=== PATIENT | female | born 1945 | race Caucasian/White ===

== ENCOUNTER 2020-02-19 11:24 | Inpatient (IN) | payer MEDICARE, OTHER ==
--- NOTE | 2020-02-19 11:33 | ERPHSYRPT ---
- History of Present Illness Time Seen by Provider: 02/19/20 11:33 Historian: patient Exam Limitations: no limitations Physician History: This is a 75-year-old female who is had 2-week history of nausea vomiting diarrhea muscle aches cough symptoms. She has been mildly short of breath as well. Has no known direct exposure to anyone who tested positive for COVID 19. Early on in her symptoms, approximately 2 weeks ago, she noticed decreased sense of taste and smell. Those symptoms are beginning to resolve. Patient arrives to this emergency department with fever of 100.1 F Timing/Duration: week(s) (2) Quality: aching (Generalized) Pain Radiation: no radiation Severity of Pain-Max: mild Severity of Pain-Current: mild Modifying Factors: Improves With: coughing, vomiting Associated Symptoms: diarrhea, loss of appetite, nausea, shortness of breath, vomiting, weakness Allergies/Adverse Reactions: No Known Drug Allergies Allergy (Verified 02/19/20 12:59) Home Medications: Atorvastatin Calcium [Lipitor] 10 mg PO DAILY 02/19/20 [History] Levothyroxine Sodium 100 mcg PO DAILY 02/19/20 [History] Metoprolol Succinate 50 mg [Toprol Xl 50 MG] 50 mg PO DAILY 02/19/20 [ History] Omeprazole 20 mg PO DAILY 02/19/20 [History] Potassium Chloride 8 meq PO BID 02/19/20 [History] Sertraline HCl 100 mg PO BID 02/19/20 [History] Triamterene/Hydrochlorothiazid [Triamterene-Hctz 37.5-25 mg Tb] 1 each PO DAILY 02/19/20 [History] buPROPion HCl [Bupropion HCl Sr] 150 mg PO BID 02/19/20 [History] - Review of Systems Constitutional: Fever, Weakness Eyes: No Symptoms Ears, Nose, & Throat: No Symptoms Respiratory: Cough Cardiac: No Symptoms Abdominal/Gastrointestinal: Nausea, Vomiting, Diarrhea Genitourinary Symptoms: No Symptoms Musculoskeletal: Arthralgias, Myalgias Skin: No Symptoms Neurological: No Symptoms Psychological: No Symptoms Endocrine: No Symptoms Hematologic/Lymphatic: No Symptoms Immunological/Allergic: No Symptoms All Other Systems: Reviewed and Negative - Past Medical History Pertinent Past Medical History: Yes Neurological History: No Pertinent History ENT History: No Pertinent History Cardiac History: Hypertension Respiratory History: No Pertinent History Endocrine Medical History: No Pertinent History Musculoskeletal History: No Pertinent History GI Medical History: No Pertinent History History: No Pertinent History Psycho-Social History: No Pertinent History Female Reproductive Disorders: No Pertinent History - Past Surgical History Neuro Surgical History: No Pertinent History Cardiac: No Pertinent History Respiratory: No Pertinent History Gastrointestinal: No Pertinent History Genitourinary: No Pertinent History Musculoskeletal: No Pertinent History Female Surgical History: No Pertinent History - Social History Smoking Status: Never smoker - Nursing Vital Signs Nursing Vital Signs: Initial Vital Signs Temperature 100.1 F 02/19/20 11:30 Pulse Rate 57 L 02/19/20 11:30 Respiratory Rate 16 02/19/20 11:30 Blood Pressure 82/48 02/19/20 11:30 O2 Sat by Pulse Oximetry 93 L 02/19/20 11:30 Pain Scale Pain Intensity 4 - Physical Exam General Appearance: mild distress, alert Eye Exam: PERRL/EOMI, eyes nml inspection Ears, Nose, Throat Exam: normal ENT inspection, moist mucous membranes Neck Exam: normal inspection, non-tender, supple, full range of motion Respiratory Exam: normal breath sounds, lungs clear, airway intact, No chest tenderness, No respiratory distress Cardiovascular Exam: regular rate/rhythm, normal heart sounds, normal peripheral pulses Gastrointestinal/Abdomen Exam: soft, normal bowel sounds, No tenderness Pelvic Exam: not done Rectal Exam: not done Back Exam: normal inspection, normal range of motion, No CVA tenderness, No vertebral tenderness Extremity Exam: normal inspection, normal range of motion, pelvis stable Neurologic Exam: alert, oriented x 3, cooperative, card room manager II-XII nml as tested Skin Exam: normal color, warm, dry Lymphatic Exam: No adenopathy SpO2 Interpretation: borderline oxygenation O2 Delivery: Room Air - Course Nursing assessment & vital signs reviewed: Yes EKG Interpreted by Me: RATE (57), Sinus Rhythm, NORMAL INTERVALS, 1st degree AV Block, Right Bundle Branch Block, Other (Indeterminate axis. No comparison EKG available) Ordered Tests: Active Orders 24 hr Category Date Time Status IV Insertion STAT Care 02/19/20 11:50 Active Isolation, Initiate & Maintain Q4H Care 02/19/20 12:46 Active CHEST 1 VIEW (PORTABLE) Stat Exams 02/19/20 11:50 Completed AMYLASE Stat Lab 02/19/20 12:00 Completed CBC W DIFF Stat Lab 02/19/20 12:00 Completed CMP Stat Lab 02/19/20 12:00 Completed Ferritin Stat Lab 02/19/20 Ordered LDH-LACTATE DEHYDROGENASE Stat Lab 02/19/20 13:21 Completed LIPASE Stat Lab 02/19/20 12:00 Completed Lactic Acid Stat Lab 02/19/20 11:50 Completed Garvin Screen Stat Lab 02/19/20 12:00 Completed UA W/RFX UR CULTURE Stat Lab 02/19/20 12:46 Completed Transfer Order Routine Transfer 02/19/20 Ordered Medication Summary Generic Name Dose Route Start Last Admin Trade Name Freq PRN Reason Stop Dose Admin Sodium Chloride 1,000 mls @ 100 mls/hr 02/19/20 12:00 02/19/20 12:08 Sodium Chloride 0.9% 1000 Ml IV 03/20/20 11:59 100 mls/hr .Q10H DAVID Administration Discontinued Medications Generic Name Dose Route Start Last Admin Trade Name Freq PRN Reason Stop Dose Admin Ceftriaxone Sodium/Dextrose 1 g in 50 mls @ 100 mls/hr 02/19/20 13:16 Rocephin 1 Gm-D5w 50 Ml Bag IV 02/19/20 13:45 STAT STA Ondansetron HCl 4 mg 02/19/20 11:50 02/19/20 12:08 Zofran 4 Mg/2 Ml Vial IV 02/19/20 11:51 4 mg STAT ONE Administration Ondansetron HCl Confirm 02/19/20 12:05 Zofran 4 Mg/2 Ml Vial Administered 02/19/20 12:06 Dose 4 mg .ROUTE .[facility] ONE Lab/Rad Data: Laboratory Result Diagrams 02/19/20 12:00 02/19/20 12:00 Laboratory Results 02/19/20 02/19/20 02/19/20 Range/Units 13:21 12:46 12:15 WBC (4.0-10.5) K/mm3 RBC (4.1-5.4) M/mm3 Hgb (12.0-16.0) gm/dl Hct (35-47) % MCV (78-100) fl MCH (26-32) pg MCHC (32-36) g/dl RDW (11.5-14.0) % Plt Count (150-450) K/mm3 MPV (7.5-11.0) fl Sodium (137-145) mmol/L Potassium (3.5-5.1) mmol/L Chloride (98-107) mmol/L Carbon Dioxide (22-30) mmol/L Anion Gap (5-15) MEQ/L BUN (7-17) mg/dL Creatinine (0.52-1.04) mg/dL Estimated GFR ML/MIN Glucose (74-106) mg/dL Lactic Acid (0.4-2.0) Calcium (8.4-10.2) mg/dL Total Bilirubin (0.2-1.3) mg/dL AST (14-36) U/L ALT (0-35) U/L Alkaline Phosphatase (38-126) U/L Lactate Dehydrogenase 366 H (120-246) U/L Serum Total Protein (6.3-8.2) g/dL Albumin (3.5-5.0) g/dL Amylase (30-110) U/L Lipase (23-300) U/L Urine Color YELLOW (YELLOW) Urine Appearance SLIGHTLY CLOUDY (CLEAR) Urine pH 7.0 (5-6) Ur Specific [place] 1.017 (1.005-1.025) Urine Protein NEGATIVE (Negative) Urine Ketones TRACE (NEGATIVE) Urine Blood NEGATIVE (0-5) Rizwan/ul Urine Nitrite NEGATIVE (NEGATIVE) Urine Bilirubin NEGATIVE (NEGATIVE) Urine Urobilinogen NEGATIVE (0-1) mg/dL Ur Leukocyte Esterase NEGATIVE (NEGATIVE) Urine WBC (Auto) 0-2 (0-5) /HPF Urine RBC (Auto) 0-2 (0-2) /HPF U Hyaline Cast (Auto) 6-10 (0-2) /LPF U Epithel Cells (Auto) RARE (FEW) /HPF Urine Bacteria (Auto) NONE SEEN (NEGATIVE) /HPF Unidentified Crystals 2-5 (NEGATIVE) /HPF Other Casts (Auto) 2-5 (NEGATIVE) /LPF Urine Mucus (Auto) SLIGHT (NEGATIVE) /HPF Urine Culture Reflexed NO (NO) Urine Glucose NEGATIVE (NEGATIVE) mg/dL Monoscreen (Negative) Influenza Type A Ag NEGATIVE (NEGATIVE) Influenza Type B Ag NEGATIVE (NEGATIVE) RSV (PCR) NEGATIVE (Negative) Group A Strep Antibody NEGATIVE (NEGATIVE) 02/19/20 02/19/20 02/19/20 Range/Units 12:00 12:00 12:00 WBC 4.7 (4.0-10.5) K/mm3 RBC 3.89 L (4.1-5.4) M/mm3 Hgb 13.1 (12.0-16.0) gm/dl Hct 38.0 (35-47) % MCV 97.7 (78-100) fl MCH 33.7 H (26-32) pg MCHC 34.5 (32-36) g/dl RDW 12.6 (11.5-14.0) % Plt Count 194 (150-450) K/mm3 MPV 9.1 (7.5-11.0) fl Sodium 132 L (137-145) mmol/L Potassium 3.1 L (3.5-5.1) mmol/L Chloride 89 L (98-107) mmol/L Carbon Dioxide 30 (22-30) mmol/L Anion Gap 16.2 H (5-15) MEQ/L BUN 24 H (7-17) mg/dL Creatinine 0.83 (0.52-1.04) mg/dL Estimated GFR > 60.0 ML/MIN Glucose 92 (74-106) mg/dL Lactic Acid (0.4-2.0) Calcium 8.4 (8.4-10.2) mg/dL Total Bilirubin 0.70 (0.2-1.3) mg/dL AST 45 H (14-36) U/L ALT 20 (0-35) U/L Alkaline Phosphatase 73 (38-126) U/L Lactate Dehydrogenase (120-246) U/L Serum Total Protein 6.2 L (6.3-8.2) g/dL Albumin 3.6 (3.5-5.0) g/dL Amylase 82 (30-110) U/L Lipase 315 H (23-300) U/L Urine Color (YELLOW) Urine Appearance (CLEAR) Urine pH (5-6) Ur Specific [place] (1.005-1.025) Urine Protein (Negative) Urine Ketones (NEGATIVE) Urine Blood (0-5) Rizwan/ul Urine Nitrite (NEGATIVE) Urine Bilirubin (NEGATIVE) Urine Urobilinogen (0-1) mg/dL Ur Leukocyte Esterase (NEGATIVE) Urine WBC (Auto) (0-5) /HPF Urine RBC (Auto) (0-2) /HPF U Hyaline Cast (Auto) (0-2) /LPF U Epithel Cells (Auto) (FEW) /HPF Urine Bacteria (Auto) (NEGATIVE) /HPF Unidentified Crystals (NEGATIVE) /HPF Other Casts (Auto) (NEGATIVE) /LPF Urine Mucus (Auto) (NEGATIVE) /HPF Urine Culture Reflexed (NO) Urine Glucose (NEGATIVE) mg/dL Monoscreen NEGATIVE (Negative) Influenza Type A Ag (NEGATIVE) Influenza Type B Ag (NEGATIVE) RSV (PCR) (Negative) Group A Strep Antibody (NEGATIVE) 02/19/20 Range/Units 11:50 WBC (4.0-10.5) K/mm3 RBC (4.1-5.4) M/mm3 Hgb (12.0-16.0) gm/dl Hct (35-47) % MCV (78-100) fl MCH (26-32) pg MCHC (32-36) g/dl RDW (11.5-14.0) % Plt Count (150-450) K/mm3 MPV (7.5-11.0) fl Sodium (137-145) mmol/L Potassium (3.5-5.1) mmol/L Chloride (98-107) mmol/L Carbon Dioxide (22-30) mmol/L Anion Gap (5-15) MEQ/L BUN (7-17) mg/dL Creatinine (0.52-1.04) mg/dL Estimated GFR ML/MIN Glucose (74-106) mg/dL Lactic Acid 1.9 (0.4-2.0) Calcium (8.4-10.2) mg/dL Total Bilirubin (0.2-1.3) mg/dL AST (14-36) U/L ALT (0-35) U/L Alkaline Phosphatase (38-126) U/L Lactate Dehydrogenase (120-246) U/L Serum Total Protein (6.3-8.2) g/dL Albumin (3.5-5.0) g/dL Amylase (30-110) U/L Lipase (23-300) U/L Urine Color (YELLOW) Urine Appearance (CLEAR) Urine pH (5-6) Ur Specific [place] (1.005-1.025) Urine Protein (Negative) Urine Ketones (NEGATIVE) Urine Blood (0-5) Rizwan/ul Urine Nitrite (NEGATIVE) Urine Bilirubin (NEGATIVE) Urine Urobilinogen (0-1) mg/dL Ur Leukocyte Esterase (NEGATIVE) Urine WBC (Auto) (0-5) /HPF Urine RBC (Auto) (0-2) /HPF U Hyaline Cast (Auto) (0-2) /LPF U Epithel Cells (Auto) (FEW) /HPF Urine Bacteria (Auto) (NEGATIVE) /HPF Unidentified Crystals (NEGATIVE) /HPF Other Casts (Auto) (NEGATIVE) /LPF Urine Mucus (Auto) (NEGATIVE) /HPF Urine Culture Reflexed (NO) Urine Glucose (NEGATIVE) mg/dL Monoscreen (Negative) Influenza Type A Ag (NEGATIVE) Influenza Type B Ag (NEGATIVE) RSV (PCR) (Negative) Group A Strep Antibody (NEGATIVE) - Progress Progress: improved, re-examined Progress Note: 02/19/20 14:05 Chest x-ray reveals mid to lower lung patchy interstitial alveolar opacities bilaterally 02/19/20 14:[address] Hi Dunaway. I reviewed the patient history and the radiographic and laboratory findings. Patient will be admitted to the COVID unit. Patient replaced on Rocephin and azithromycin intravenously. We will repeat laboratory data in the morning. Patient be placed on oxygen therapy. Counseled pt/family regarding: lab results, diagnosis, need for follow-up, rad results - Departure Departure Disposition: In-patient Admission Clinical Impression: Cough, Fever, Pneumonia, Suspected COVID-19 virus infection Condition: Fair Critical Care Time: No Critical Care Time(excluding separately billable procedures): Critical 30-74 mins Referrals: KECIA KINGSTON DO [Primary Care Provider] -
[2020-02-19] MEDS ORDERED: Zofran 4 MG/2 ML VIAL IV ONE (11:50)
[2020-02-19] MEDS ORDERED: Sodium Chloride 0.9% 1000 ML 1,000 ML IV SCH (12:00)
[2020-02-19] MEDS ORDERED: Zofran 4 MG/2 ML VIAL ONE (12:05)
[2020-02-19] MEDS ORDERED: Sodium Chloride 0.9% 1000 ML 1,000 ML ONE (12:05)
--- NOTE | 2020-02-19 12:27 | XRAY ---
Indication: Suspect Covid 19. Comparison: None Portable chest demonstrates subtle mid to lower lung patchy interstitial alveolar opacities bilaterally. Remaining heart and lungs unremarkable with incidental right lung calcified granuloma. Bony thorax intact with mild degenerative changes.
[2020-02-19 12:57] LABS: Hemoglobin 13.1 gm/dl (12.0-16.0); Mean Cell Volume 97.7 fl (78-100); Mean Corpuscular Hemoglobin 33.7 pg (26-32); Mean Corpuscular Hgb Concent. 34.5 g/dl (32-36); Mean Platelet Volume 9.1 fl (7.5-11.0); Platelet Count 194 K/mm3 (150-450); Red Blood Count 3.89 M/mm3 (4.1-5.4); Red Cell Distribution Width 12.6 % (11.5-14.0); White Blood Count 4.7 K/mm3 (4.0-10.5)
[2020-02-19 13:03] LABS: ALBUMIN 3.6 g/dL (3.5-5.0); ALKALINE PHOSPHATASE 73 U/L (38-126); AMYLASE 82 U/L (30-110); ANION GAP 16.2 MEQ/L (5-15); BLOOD UREA NITROGEN 24 mg/dL (7-17); CHLORIDE 89 mmol/L (98-107); Calcium 8.4 mg/dL (8.4-10.2); Carbon Dioxide 30 mmol/L (22-30); Creatinine 1 0.83 mg/dL (0.52-1.04); Glucose 92 mg/dL (74-106); LIPASE 315 U/L (23-300); SGOT/AST 45 U/L (14-36); SGPT/ALT 20 U/L (0-35); SODIUM 132 mmol/L (137-145); Total Protein 6.2 g/dL (6.3-8.2)
[2020-02-19 13:04] LABS: Potassium 3.1 mmol/L (3.5-5.1)
[2020-02-19] MEDS ORDERED: ROCEPHIN 1 Gm-D5w 50 ml Bag** 1 G/50 ML IVPB IV STA (13:16)
[2020-02-19 13:27] LABS: INFLUENZA A NEGATIVE (NEGATIVE); INFLUENZA B NEGATIVE (NEGATIVE); RESPIRATORY SYNCTIAL VIRUS NEGATIVE (Negative)
[2020-02-19 13:35] LABS: Appearance SLIGHTLY CLOUDY (CLEAR); Bilirubin NEGATIVE (NEGATIVE); Blood NEGATIVE Ery/ul (0-5); Epithelial Cells RARE /HPF (FEW); Glucose NEGATIVE (NEGATIVE); Ketones TRACE (NEGATIVE); Leukocyte Esterase NEGATIVE (NEGATIVE); Mucus SLIGHT /HPF (NEGATIVE); Nitrite NEGATIVE (NEGATIVE); Protein,Urine Dip NEGATIVE (Negative); RBC 0-2 /HPF (0-2); Specific Gravity 1.017 (1.005-1.025); Urobilinogen NEGATIVE mg/dL (0-1); WBC 0-2 /HPF (0-5)
[2020-02-19 13:40] LABS: Bacteria NONE SEEN /HPF (NEGATIVE)
[2020-02-19] MEDS ORDERED: ROCEPHIN 1 Gm-D5w 50 ml Bag** 1 G/50 ML IVPB IV ONE (14:52)
[2020-02-19] MEDS ORDERED: POTASSIUM CHLORIDE 20 mEq IN WATER 100ML 20 MEQ/100 ML BAG IV ONE (15:22)
[2020-02-19 16:20] LABS: BAND 5 % (0.0-2.0); Lymphocytes 6 % (24-44); Monocyte 3 % (0.0-12.0); Neutrophils 86 % (36.0-66.0); Platelet Estimate NORMAL (NORMAL); Total Cells Counted 100
[2020-02-19] MEDS: Sodium Chloride 0.9% 1000 ML 1,000 ML IV SCH (16:22)
[2020-02-19] MEDS ORDERED: ANTIVERT 25 MG PO PRN (18:08)
[2020-02-19] MEDS ORDERED: Ventolin Hfa MDI IH PRN (18:13)
[2020-02-19] MEDS: TYLENOL 325 MG PO PRN (20:11)
[2020-02-19] MEDS: ZOLOFT 50 MG TABLET PO SCH (21:40)
[2020-02-19] MEDS: ENOXAPARIN SODIUM SQ SCH (21:40)
[2020-02-19] MEDS: Wellbutrin SR 150 MG PO SCH (21:40)
[2020-02-19] MEDS: Klor Con 10 MEQ PO SCH (21:41)
[2020-02-19] MEDS: ECOTRIN 81 MG PO SCH (21:41)
[2020-02-19] MEDS ORDERED: Zithromax 500 MG/ 250 ML NaCl Premix 500 MG/250 ML IVPB IV SCH (22:00)
[2020-02-19] MEDS: POTASSIUM CHLORIDE 20 mEq IN WATER 100ML 20 MEQ/100 ML BAG IV ONE (22:00)
[2020-02-20] MEDS: TYLENOL 325 MG PO PRN ×2 (01:43→15:53)
[2020-02-20 05:29] LABS: Mean Cell Volume 99.4 fl (78-100); Mean Corpuscular Hemoglobin 33.1 pg (26-32); Mean Corpuscular Hgb Concent. 33.3 g/dl (32-36); Mean Platelet Volume 8.2 fl (7.5-11.0); Platelet Count 176 K/mm3 (150-450); Red Blood Count 3.32 M/mm3 (4.1-5.4); Red Cell Distribution Width 12.7 % (11.5-14.0); White Blood Count 4.8 K/mm3 (4.0-10.5)
[2020-02-20 05:52] LABS: ALKALINE PHOSPHATASE 64 U/L (38-126); ANION GAP 16.4 MEQ/L (5-15); BLOOD UREA NITROGEN 16 mg/dL (7-17); CHLORIDE 95 mmol/L (98-107); Calcium 7.5 mg/dL (8.4-10.2); Carbon Dioxide 28 mmol/L (22-30); Creatinine 1 0.81 mg/dL (0.52-1.04); Glucose 91 mg/dL (74-106); SGOT/AST 38 U/L (14-36); SGPT/ALT 16 U/L (0-35); SODIUM 136 mmol/L (137-145); Total Protein 5.5 g/dL (6.3-8.2)
[2020-02-20 05:54] LABS: Potassium 2.9 mmol/L (3.5-5.1)
[2020-02-20] MEDS ORDERED: POTASSIUM CHLORIDE 20 mEq IN WATER 100ML 20 MEQ/100 ML BAG IV ONE (05:57)
[2020-02-20] MEDS: POTASSIUM CHLORIDE 20 mEq IN WATER 100ML 20 MEQ/100 ML BAG IV ONE (06:02)
[2020-02-20 06:32] LABS: BAND 4 % (0.0-2.0); Lymphocytes 3 % (24-44); Neutrophils 93 % (36.0-66.0); Platelet Estimate NORMAL (NORMAL); Total Cells Counted 100
[2020-02-20] MEDS ORDERED: VENTOLIN COMMON CANISTER IH PRN (06:59)
[2020-02-20] MEDS: Zofran 4 MG/2 ML VIAL IV PRN (07:05)
[2020-02-20] MEDS ORDERED: PHARMACY DOSING REQUEST MC ONE ×2 (07:45→11:52)
[2020-02-20] MEDS ORDERED: NON-FORMULARY ITEM (Fluticasone Propionate [Flonase Allergy Relief] 1 SPRAY) NS SCH (10:00)
[2020-02-20] MEDS ORDERED: ROCEPHIN 1 Gm-D5w 50 ml Bag** 1 G/50 ML IVPB IV SCH (10:00)
[2020-02-20] MEDS ORDERED: NON-FORMULARY ITEM (Atorvastatin Calcium [Lipitor] 10 MG) PO SCH (10:00)
[2020-02-20] MEDS ORDERED: NON-FORMULARY ITEM (Cyanocobalamin (Vitamin B-12) [Vitamin B-12] 1,000 MCG) SL SCH (10:00)
[2020-02-20] MEDS ORDERED: NON-FORMULARY ITEM (Multivitamin [Multivitamins] 1 EACH) PO SCH (10:00)
[2020-02-20] MEDS: Flonase NASAL NS SCH (10:41)
[2020-02-20] MEDS: ENOXAPARIN SODIUM SQ SCH (10:42)
[2020-02-20] MEDS: Zocor 10MG PO SCH (10:44)
[2020-02-20] MEDS: Klor Con 10 MEQ PO SCH ×2 (10:44→22:38)
[2020-02-20] MEDS: Protonix 40MG Tablet PO SCH (10:44)
[2020-02-20] MEDS: THERAGRAN MULTIVITAMIN PO SCH (10:45)
[2020-02-20] MEDS: Wellbutrin SR 150 MG PO SCH ×2 (10:45→22:38)
[2020-02-20] MEDS: ZOLOFT 50 MG TABLET PO SCH ×2 (10:45→22:38)
[2020-02-20] MEDS: Vitamin B-12 500 MCG PO SCH (10:45)
[2020-02-20] MEDS: SYNTHROID 100 MCG PO SCH (10:50)
[2020-02-20] MEDS: DELTASONE 20 MG PO SCH (10:53)
--- NOTE | 2020-02-20 11:09 | HP ---
CHIEF COMPLAINT: Fatigue, temperature, cough. HISTORY OF PRESENT ILLNESS: The patient is a 75 year-old white female who comes in after coughing, running a low grade temperature. She had some recent nausea, vomiting, diarrhea, muscle aching. No exposure to COVID that she knows. She has been living at her daughters who is a nurse. She had lived in [place]. I believe she now lives in [place] and has been living towards [place] recently and came back here. In the emergency room she had a temperature 100.1F. MEDICATIONS: Atorvastatin 10 q.d., Synthroid 100 q.d., metoprolol 50 q.d., Prilosec 20 q.d., Zoloft 100 b.i.d., Maxzide 37/25 q.d., Wellbutrin 150 b.i.d. PAST MEDICAL HISTORY: Hypertension. Hypothyroidism. Gastroesophageal reflux disease. REVIEW OF SYSTEMS: HEENT: Hears and sees okay. Just tired, listless. RESPIRATORY: Frequent cough for two weeks. Nonsmoker. No history of pneumonia. She has had influenza vaccine. CVS: Denies heart problems, heart attacks, heart failure or arrhythmia. ABDOMEN: Some nausea and vomiting. She lost her sense of taste which is coming back. Diarrhea. MUSCULOSKELETAL: Achy, weak, ambulates by herself to the bathroom. NEUROLOGIC: No symptoms. ENDOCRINE: Fatigue. PSYCHIATRIC: The patient lost her this spring after complications with his dementia. I believe she also lost maybe [id number] from dementia this spring also. It has been a very depressing time for her. PHYSICAL EXAMINATION: The patient is appropriately aged, well dressed, very pleasant 75 year-old white female who looks chronically ill. VITAL SIGNS: Temperature 100F, pulse 57, respirations 16, blood pressure 82/48. O2 saturation 93% on room air. HEENT: Pupils equal and reactive to light. Hearing and seeing is okay. NECK: Supple without adenopathy. CHEST: Clear. CVS: Bradycardia. No murmurs or gallops. ABDOMEN: No masses or organomegaly. EXTREMITIES: No edema. Patient moves all. No fractures. IMPRESSION: Cough, nausea, fatigue, bradycardia for three weeks. Viral upper respiratory tract infection possible COVID as well as the hypokalemia. Low calcium secondary to low protein. PLAN: Discontinue the Toprol secondary to bradycardia and hypotension. Get COVID virus test due to all of the symptoms including temperature. Stop her Dyazide due to hypokalemia. Consider maybe backing off the Zoloft since she is nauseated all the time. Started some antibiotics for continued fever, some IV potassium as potassium is 2.9. Her creatinine is normal at 0.831. Calcium is slightly low at 7.4. Total protein is low at 5.5 explaining the calcium. Albumin is low at 3.0. Differential she had 4 bands, 93 neutrophils, hemoglobin 11, white count was only 4.9. IV fluids, discontinue the above medications. PROGNOSIS: Good.
[2020-02-20] MEDS ORDERED: Potassium Chloride 40 MEQ/20 ML VIAL 40 MEQ, XYLOCAINE 1% HCL 20 ML MDV*** 4 ML in Sodi... IV ONE (12:00)
[2020-02-20] MEDS: MAG-OX 400 PO SCH (12:58)
[2020-02-20] MEDS: ECOTRIN 81 MG PO SCH (22:37)
[2020-02-20 23:26] LABS: Adenovirus F 40/41 NEGATIVE (NEGATIVE); Astrovirus NEGATIVE (NEGATIVE); C. Difficile Organism NEGATIVE (NEGATIVE); Campylobacter NEGATIVE (NEGATIVE); Cryptosporidium NEGATIVE (NEGATIVE); Cyclospora cayentanensis NEGATIVE (NEGATIVE); Entamoeaba histolytica NEGATIVE (NEGATIVE); Enteroaggregative E.coli NEGATIVE (NEGATIVE); Enteropathogenic E.coli NEGATIVE (NEGATIVE); Enterotoxigenic E.coli NEGATIVE (NEGATIVE); Giardia lamblia NEGATIVE (NEGATIVE); Norovirus GI/GII NEGATIVE (NEGATIVE); Plesiomonas shigelloides NEGATIVE (NEGATIVE); Rotavirus A NEGATIVE (NEGATIVE); Salmonella NEGATIVE (NEGATIVE); Shiga-like toxin prod.E.coli NEGATIVE (NEGATIVE); Vibrio NEGATIVE (NEGATIVE); Vibrio cholerae NEGATIVE (NEGATIVE); Yersinia enterocolitica NEGATIVE (NEGATIVE)
[2020-02-20 23:27] LABS: Sapovirus NEGATIVE (NEGATIVE)
[2020-02-21] MEDS: TYLENOL 325 MG PO PRN ×3 (04:02→20:14)
[2020-02-21] MEDS: Sodium Chloride 0.9% 1000 ML 1,000 ML IV SCH (04:02)
[2020-02-21] MEDS: IMODIUM 2 MG PO PRN ×2 (05:46→09:06)
[2020-02-21] MEDS: Zofran 4 MG/2 ML VIAL IV PRN (05:46)
[2020-02-21] MEDS: SYNTHROID 100 MCG PO SCH (05:46)
[2020-02-21] MEDS ORDERED: Zofran 4 MG/2 ML VIAL IV PRN (09:01)
[2020-02-21] MEDS: ZOLOFT 50 MG TABLET PO SCH ×3 (09:07→22:48)
[2020-02-21] MEDS: Klor Con 10 MEQ PO SCH ×3 (09:07→22:48)
[2020-02-21] MEDS: Vitamin B-12 500 MCG PO SCH (09:07)
[2020-02-21] MEDS: MAG-OX 400 PO SCH (09:07)
[2020-02-21] MEDS: Protonix 40MG Tablet PO SCH (09:07)
[2020-02-21] MEDS: DELTASONE 20 MG PO SCH (09:07)
[2020-02-21] MEDS: THERAGRAN MULTIVITAMIN PO SCH (09:07)
[2020-02-21] MEDS: Zocor 10MG PO SCH (09:07)
[2020-02-21] MEDS: Wellbutrin SR 150 MG PO SCH ×3 (09:07→22:48)
[2020-02-21] MEDS: ENOXAPARIN SODIUM SQ SCH (09:08)
[2020-02-21] MEDS: Flonase NASAL NS SCH (09:08)
[2020-02-21] MEDS: Flagyl 500 MG PO SCH ×2 (09:55→14:53)
[2020-02-21 10:18] LABS: Hematocrit 31.6 % (35-47); Hemoglobin 10.5 gm/dl (12.0-16.0); Mean Cell Volume 100.6 fl (78-100); Mean Corpuscular Hemoglobin 33.4 pg (26-32); Mean Corpuscular Hgb Concent. 33.2 g/dl (32-36); Mean Platelet Volume 8.2 fl (7.5-11.0); Platelet Count 181 K/mm3 (150-450); Red Blood Count 3.14 M/mm3 (4.1-5.4); Red Cell Distribution Width 12.6 % (11.5-14.0); White Blood Count 5.1 K/mm3 (4.0-10.5)
[2020-02-21] MEDS: Lomotil PO PRN (12:01)
[2020-02-21] MEDS: ECOTRIN 81 MG PO SCH ×2 (22:02→22:48)
[2020-02-21] MEDS: ANTIVERT 25 MG PO PRN ×2 (22:03→22:49)
[2020-02-22] MEDS: Sodium Chloride 0.9% 1000 ML 1,000 ML IV SCH ×3 (00:17→20:30)
[2020-02-22] MEDS: TYLENOL 325 MG PO PRN ×3 (00:18→15:03)
[2020-02-22 05:19] LABS: Hematocrit 30.6 % (35-47); Hemoglobin 10.2 gm/dl (12.0-16.0); Mean Cell Volume 100.3 fl (78-100); Mean Corpuscular Hemoglobin 33.4 pg (26-32); Mean Corpuscular Hgb Concent. 33.3 g/dl (32-36); Mean Platelet Volume 8.3 fl (7.5-11.0); Platelet Count 203 K/mm3 (150-450); Red Blood Count 3.05 M/mm3 (4.1-5.4); Red Cell Distribution Width 12.6 % (11.5-14.0); White Blood Count 5.8 K/mm3 (4.0-10.5)
[2020-02-22 05:24] LABS: ALBUMIN 2.8 g/dL (3.5-5.0); ALKALINE PHOSPHATASE 56 U/L (38-126); ANION GAP 11.2 MEQ/L (5-15); BLOOD UREA NITROGEN 7 mg/dL (7-17); CHLORIDE 100 mmol/L (98-107); Calcium 7.7 mg/dL (8.4-10.2); Carbon Dioxide 27 mmol/L (22-30); Creatinine 1 0.66 mg/dL (0.52-1.04); Glucose 92 mg/dL (74-106); Potassium 3.3 mmol/L (3.5-5.1); SGOT/AST 31 U/L (14-36); SGPT/ALT 17 U/L (0-35); SODIUM 134 mmol/L (137-145); Total Protein 5.5 g/dL (6.3-8.2)
[2020-02-22] MEDS: SYNTHROID 100 MCG PO SCH (06:03)
[2020-02-22] MEDS ORDERED: Klor Con 10 MEQ PO ONE (10:00)
[2020-02-22] MEDS: ZOLOFT 50 MG TABLET PO SCH ×2 (10:27→21:51)
[2020-02-22] MEDS: Klor Con 10 MEQ PO SCH ×2 (10:27→21:51)
[2020-02-22] MEDS: Zocor 10MG PO SCH (10:27)
[2020-02-22] MEDS: Wellbutrin SR 150 MG PO SCH ×2 (10:27→21:52)
[2020-02-22] MEDS: Protonix 40MG Tablet PO SCH (10:28)
[2020-02-22] MEDS: THERAGRAN MULTIVITAMIN PO SCH (10:28)
[2020-02-22] MEDS: Vitamin B-12 500 MCG PO SCH (10:28)
[2020-02-22] MEDS: MAG-OX 400 PO SCH (10:29)
[2020-02-22] MEDS: ENOXAPARIN SODIUM SQ SCH (10:29)
[2020-02-22] MEDS: Flonase NASAL NS SCH (10:29)
[2020-02-22] MEDS ORDERED: REMDESIVIR 200 MG in Sodium Chloride 0.9% 250 ML 250 ML IV ONE (10:30)
[2020-02-22] MEDS: Lomotil PO PRN ×2 (11:01→15:03)
[2020-02-22] MEDS: Ativan 1 MG PO PRN (11:01)
[2020-02-22] MEDS: ECOTRIN 81 MG PO SCH (21:52)
[2020-02-23] MEDS: SYNTHROID 100 MCG PO SCH (05:30)
[2020-02-23 06:31] LABS: Hematocrit 30.6 % (35-47); Hemoglobin 10.3 gm/dl (12.0-16.0); Mean Cell Volume 99.4 fl (78-100); Mean Corpuscular Hemoglobin 33.4 pg (26-32); Mean Corpuscular Hgb Concent. 33.7 g/dl (32-36); Mean Platelet Volume 8.2 fl (7.5-11.0); Platelet Count 216 K/mm3 (150-450); Red Blood Count 3.08 M/mm3 (4.1-5.4); Red Cell Distribution Width 12.9 % (11.5-14.0)
[2020-02-23 06:39] LABS: ALBUMIN 2.9 g/dL (3.5-5.0); ALKALINE PHOSPHATASE 51 U/L (38-126); ANION GAP 11.8 MEQ/L (5-15); BLOOD UREA NITROGEN 9 mg/dL (7-17); CHLORIDE 99 mmol/L (98-107); Calcium 7.5 mg/dL (8.4-10.2); Carbon Dioxide 25 mmol/L (22-30); Creatinine 1 0.62 mg/dL (0.52-1.04); Glucose 86 mg/dL (74-106); Potassium 3.5 mmol/L (3.5-5.1); SGOT/AST 35 U/L (14-36); SGPT/ALT 16 U/L (0-35); SODIUM 133 mmol/L (137-145); Total Protein 5.4 g/dL (6.3-8.2)
[2020-02-23] MEDS: Lomotil PO PRN ×2 (09:49→14:08)
[2020-02-23] MEDS: Protonix 40MG Tablet PO SCH (09:49)
[2020-02-23] MEDS: THERAGRAN MULTIVITAMIN PO SCH (09:49)
[2020-02-23] MEDS: Klor Con 10 MEQ PO SCH ×2 (09:49→21:37)
[2020-02-23] MEDS: ENOXAPARIN SODIUM SQ SCH (09:49)
[2020-02-23] MEDS: Vitamin B-12 500 MCG PO SCH (09:49)
[2020-02-23] MEDS: Zocor 10MG PO SCH (09:50)
[2020-02-23] MEDS: ZOLOFT 50 MG TABLET PO SCH ×2 (09:50→21:37)
[2020-02-23] MEDS: Wellbutrin SR 150 MG PO SCH ×2 (09:50→21:37)
[2020-02-23] MEDS: Flonase NASAL NS SCH (09:50)
[2020-02-23] MEDS: REMDESIVIR 100 MG in Sodium Chloride 0.9% 100 ML IVPB 100 ML IV SCH (09:50)
[2020-02-23] MEDS: MAG-OX 400 PO SCH (09:50)
[2020-02-23] MEDS: IMODIUM 2 MG PO PRN ×2 (14:08→20:54)
[2020-02-23] MEDS: Ativan 1 MG PO PRN (14:08)
[2020-02-23] MEDS: TYLENOL 325 MG PO PRN (14:08)
[2020-02-23] MEDS: ECOTRIN 81 MG PO SCH (21:37)
[2020-02-23] MEDS: Sodium Chloride 0.9% 1000 ML 1,000 ML IV SCH (21:40)
[2020-02-24] MEDS: SYNTHROID 100 MCG PO SCH (06:05)
[2020-02-24 06:55] LABS: Hematocrit 30.4 % (35-47); Hemoglobin 10.1 gm/dl (12.0-16.0); Mean Cell Volume 99.3 fl (78-100); Mean Corpuscular Hgb Concent. 33.2 g/dl (32-36); Mean Platelet Volume 8.3 fl (7.5-11.0); Platelet Count 222 K/mm3 (150-450); Red Blood Count 3.06 M/mm3 (4.1-5.4); Red Cell Distribution Width 12.8 % (11.5-14.0); White Blood Count 4.8 K/mm3 (4.0-10.5)
[2020-02-24 07:00] LABS: ALBUMIN 2.7 g/dL (3.5-5.0); ALKALINE PHOSPHATASE 51 U/L (38-126); ANION GAP 12.9 MEQ/L (5-15); BLOOD UREA NITROGEN 9 mg/dL (7-17); CHLORIDE 100 mmol/L (98-107); Calcium 7.5 mg/dL (8.4-10.2); Carbon Dioxide 25 mmol/L (22-30); Glucose 87 mg/dL (74-106); SGOT/AST 37 U/L (14-36); SGPT/ALT 17 U/L (0-35); SODIUM 135 mmol/L (137-145); Total Protein 5.3 g/dL (6.3-8.2)
[2020-02-24 07:07] LABS: Potassium 2.9 mmol/L (3.5-5.1)
[2020-02-24] MEDS: POTASSIUM CHLORIDE 20 mEq IN WATER 100ML 20 MEQ/100 ML BAG IV SCH ×4 (07:31→17:11)
[2020-02-24 07:52] LABS: Appearance CLEAR (CLEAR); Bilirubin NEGATIVE (NEGATIVE); Blood NEGATIVE Ery/ul (0-5); Glucose NEGATIVE (NEGATIVE); Ketones TRACE (NEGATIVE); Leukocyte Esterase NEGATIVE (NEGATIVE); Mucus SLIGHT /HPF (NEGATIVE); Nitrite NEGATIVE (NEGATIVE); Protein,Urine Dip NEGATIVE (Negative); Specific Gravity 1.006 (1.005-1.025); Urobilinogen NEGATIVE mg/dL (0-1)
[2020-02-24] MEDS: ENOXAPARIN SODIUM SQ SCH (09:19)
[2020-02-24] MEDS: ZOLOFT 50 MG TABLET PO SCH ×2 (09:19→21:44)
[2020-02-24] MEDS: Klor Con 10 MEQ PO SCH ×3 (09:20→23:22)
[2020-02-24] MEDS: Flonase NASAL NS SCH (09:20)
[2020-02-24] MEDS: Vitamin B-12 500 MCG PO SCH (09:20)
[2020-02-24] MEDS: MAG-OX 400 PO SCH ×2 (09:20→23:22)
[2020-02-24] MEDS: THERAGRAN MULTIVITAMIN PO SCH ×2 (09:20→10:01)
[2020-02-24] MEDS: Wellbutrin SR 150 MG PO SCH ×2 (09:20→21:44)
[2020-02-24] MEDS: Zocor 10MG PO SCH (09:20)
[2020-02-24] MEDS: Protonix 40MG Tablet PO SCH (09:20)
[2020-02-24] MEDS: REMDESIVIR 100 MG in Sodium Chloride 0.9% 100 ML IVPB 100 ML IV SCH (09:50)
[2020-02-24] MEDS ORDERED: POTASSIUM CHLORIDE 20 mEq IN WATER 100ML 100 ML IV ONE (14:52)
[2020-02-24] MEDS ORDERED: Sodium Chloride 0.9% 500 ML 500 ML IV SCH (15:00)
[2020-02-24] MEDS: ECOTRIN 81 MG PO SCH (21:44)
[2020-02-24 22:57] LABS: MAGNESIUM 1.3 mg/dL (1.6-2.3)
[2020-02-25] MEDS: SYNTHROID 100 MCG PO SCH (05:03)
[2020-02-25 05:16] LABS: Hematocrit 31.4 % (35-47); Hemoglobin 10.4 gm/dl (12.0-16.0); Mean Cell Volume 98.7 fl (78-100); Mean Corpuscular Hemoglobin 32.7 pg (26-32); Mean Corpuscular Hgb Concent. 33.1 g/dl (32-36); Platelet Count 244 K/mm3 (150-450); Red Blood Count 3.18 M/mm3 (4.1-5.4); Red Cell Distribution Width 12.8 % (11.5-14.0); White Blood Count 5.3 K/mm3 (4.0-10.5)
[2020-02-25 05:46] LABS: ALBUMIN 2.7 g/dL (3.5-5.0); ALKALINE PHOSPHATASE 57 U/L (38-126); ANION GAP 10.2 MEQ/L (5-15); BLOOD UREA NITROGEN 8 mg/dL (7-17); CHLORIDE 102 mmol/L (98-107); Calcium 7.8 mg/dL (8.4-10.2); Carbon Dioxide 27 mmol/L (22-30); Creatinine 1 0.52 mg/dL (0.52-1.04); Glucose 97 mg/dL (74-106); Potassium 3.2 mmol/L (3.5-5.1); SGOT/AST 39 U/L (14-36); SGPT/ALT 19 U/L (0-35); SODIUM 136 mmol/L (137-145); Total Protein 5.4 g/dL (6.3-8.2)
[2020-02-25] MEDS: REMDESIVIR 100 MG in Sodium Chloride 0.9% 100 ML IVPB 100 ML IV SCH (10:00)
[2020-02-25] MEDS: ENOXAPARIN SODIUM SQ SCH (10:01)
[2020-02-25] MEDS: Wellbutrin SR 150 MG PO SCH ×2 (10:01→21:45)
[2020-02-25] MEDS: ZOLOFT 50 MG TABLET PO SCH ×2 (10:02→21:45)
[2020-02-25] MEDS: Zocor 10MG PO SCH (10:02)
[2020-02-25] MEDS: THERAGRAN MULTIVITAMIN PO SCH (10:02)
[2020-02-25] MEDS: Vitamin B-12 500 MCG PO SCH (10:02)
[2020-02-25] MEDS: MAG-OX 400 PO SCH ×2 (10:02→21:44)
[2020-02-25] MEDS: Klor Con 10 MEQ PO SCH ×3 (10:03→21:45)
[2020-02-25] MEDS: Protonix 40MG Tablet PO SCH (10:03)
[2020-02-25] MEDS: Flonase NASAL NS SCH (10:39)
--- NOTE | 2020-02-25 12:52 | PCM.NOTE ---
Date and Time: 02/25/20 1248 Subjective Assessment: doing ok, still short of breath - Review of Systems Constitutional: No Fever, No Chills Eyes: No Symptoms Ears, Nose, & Throat: No Symptoms Respiratory: Orthopnea, Short Of Breath, No Cough Cardiac: No Chest Pain, No Edema, No Syncope Abdominal/Gastrointestinal: No Abdominal Pain, No Nausea, No Vomiting, No Diarrhea Genitourinary Symptoms: No Dysuria Musculoskeletal: No Back Pain, No Neck Pain Skin: No Rash Neurological: No Dizziness, No Focal Weakness, No Sensory Changes Psychological: No Symptoms Endocrine: No Symptoms Hematologic/Lymphatic: No Symptoms Immunological/Allergic: No Symptoms Objective Exam General Appearance: no apparent distress, alert Neurologic Exam: alert, oriented x 3, cooperative, normal mood/affect, nml cerebellar function, sensation nml, No motor deficits Skin Exam: normal color, warm, dry Eye Exam: PERRL, EOMI, eyes nml inspection Ears, Nose, Throat Exam: normal ENT inspection, pharynx normal, moist mucous membranes Neck Exam: normal inspection, non-tender, supple, full range of motion Respiratory Exam: normal breath sounds, diminished breath sounds, crackles/rales , rhonchi, wheezing, No respiratory distress Cardiovascular Exam: regular rate/rhythm, normal heart sounds Gastrointestinal/Abdomen Exam: soft, No tenderness, No mass Extremity Exam: normal inspection, normal range of motion Back Exam: normal inspection, normal range of motion, No CVA tenderness, No vertebral tenderness Pelvic Exam: deferred Rectal Exam: deferred OBJECTIVE DATA Vital Signs: Vital Signs - 24 hr Temp Pulse Resp BP Pulse Ox 02/25/20 12:28 98.1 F 59 L 18 120/59 94 L 02/25/20 12:00 98.1 F 62 27 H 131/74 94 L 02/25/20 11:00 16 02/25/20 10:00 16 02/25/20 09:53 99.0 F 50 L 14 155/60 94 L 02/25/20 09:00 26 H 02/25/20 08:00 16 02/25/20 07:40 60 18 94 L 02/25/20 07:23 98.1 F 68 16 114/55 95 02/25/20 07:00 27 H 02/25/20 06:00 27 H 02/25/20 05:35 60 27 H 95 02/25/20 05:00 20 06/01/20 04:00 98.1 F 68 20 138/71 93 L 02/25/20 03:00 20 02/25/20 02:00 65 20 92 L 02/25/20 00:59 25 H 02/25/20 00:00 30 H 02/24/20 23:51 98.4 F 67 18 138/71 91 L 02/24/20 23:00 23 02/24/20 21:47 67 18 94 L 02/24/20 21:00 23 02/24/20 20:30 64 16 93 L 02/24/20 20:00 98.5 F 72 18 126/64 94 L 02/24/20 18:40 21 02/24/20 17:53 61 18 92 L 02/24/20 17:00 22 02/24/20 16:00 98.8 F 62 18 108/62 94 L 02/24/20 15:00 18 02/24/20 14:00 60 18 92 L 02/24/20 12:49 17 Oxygen-Last 24 hours Oxygen Flowrate (L/min)-RT 2 Oxygen Flowrate (L/min)-RT 2 Oxygen Flowrate (L/min)-RT 2 Oxygen Flowrate (L/min)-RT 2 Oxygen Flowrate (L/min)-RT 2 Oxygen Flowrate (L/min)-RT 2 Oxygen Flowrate (L/min)-RT 2 Pain Assessment - Last Documented Pain Intensity 0 Pain Scale Used FLACC Intake and Output: Intake & Output 02/23/20 02/24/20 02/25/20 02/26/20 11:59 11:59 11:59 11:59 Intake Total 2640 2914 1840 Output Total 1650 2325 1350 Balance 990 589 490 Weight 90 kg 91.2 kg 90.5 kg Lab Results: Lab Results-Last 24 Hours 02/24/20 02/24/20 02/25/20 Range/Units 14:05 22:44 05:00 WBC 5.3 (4.0-10.5) K/mm3 RBC 3.18 L (4.1-5.4) M/mm3 Hgb 10.4 L (12.0-16.0) gm/dl Hct 31.4 L (35-47) % MCV 98.7 (78-100) fl MCH 32.7 H (26-32) pg MCHC 33.1 (32-36) g/dl RDW 12.8 (11.5-14.0) % Plt Count 244 (150-450) K/mm3 MPV 8.0 (7.5-11.0) fl D-Dimer (215-500) ng/mL Sodium (137-145) mmol/L Potassium 2.9 L* 3.0 L (3.5-5.1) mmol/L Chloride (98-107) mmol/L Carbon Dioxide (22-30) mmol/L Anion Gap (5-15) MEQ/L BUN (7-17) mg/dL Creatinine (0.52-1.04) mg/dL Estimated GFR ML/MIN Glucose (74-106) mg/dL Calcium (8.4-10.2) mg/dL Magnesium 1.3 L (1.6-2.3) mg/dL Total Bilirubin (0.2-1.3) mg/dL AST (14-36) U/L ALT (0-35) U/L Alkaline Phosphatase (38-126) U/L Serum Total Protein (6.3-8.2) g/dL Albumin (3.5-5.0) g/dL 02/25/20 02/25/20 02/25/20 Range/Units 05:00 05:00 05:00 WBC (4.0-10.5) K/mm3 RBC (4.1-5.4) M/mm3 Hgb (12.0-16.0) gm/dl Hct (35-47) % MCV (78-100) fl MCH (26-32) pg MCHC (32-36) g/dl RDW (11.5-14.0) % Plt Count (150-450) K/mm3 MPV (7.5-11.0) fl D-Dimer 769 H* (215-500) ng/mL Sodium 136 L (137-145) mmol/L Potassium 3.2 L (3.5-5.1) mmol/L Chloride 102 (98-107) mmol/L Carbon Dioxide 27 (22-30) mmol/L Anion Gap 10.2 (5-15) MEQ/L BUN 8 (7-17) mg/dL Creatinine 0.52 (0.52-1.04) mg/dL Estimated GFR > 60.0 ML/MIN Glucose 97 (74-106) mg/dL Calcium 7.8 L (8.4-10.2) mg/dL Magnesium 1.3 L (1.6-2.3) mg/dL Total Bilirubin 0.50 (0.2-1.3) mg/dL AST 39 H (14-36) U/L ALT 19 (0-35) U/L Alkaline Phosphatase 57 (38-126) U/L Serum Total Protein 5.4 L (6.3-8.2) g/dL Albumin 2.7 L (3.5-5.0) g/dL Multi-Disciplinary Progress Notes: Multi-Disciplinary Progress Notes 02/25/20 11:35 Nutrition Note by Trisha Booth F/u Note: House Regular diet con't with 25-50% po intake. admission weight 85.6 kg/ current weight 90.5 kg. Labs 02/24= Na 136, K+ 3.2, alb 2.7, Mg 1.3, hgb 10.4, hct 31.4. + fluid balance. goal of consuming >=50% of meals not met 100% and ongoing. Recommend to con't with regular diet and goals. Will monitor and f/u prn. TREFUGIO Alegria Initialized on 02/25/20 11:35 - END OF NOTE 02/25/20 07:45 (created 02/25/20 08:03) Respiratory Note by Josselyn Moses PT GOT UP TO THE BATHROOM ON ROOM AIR. PT'S O2 SAT ON ROOM AIR WHILE WALKING WAS 84%. PT WAS PLACED BACK ON 2LPM NASAL CANNULA. O2 SAT INCREASED TO 94%. NURSE NOTIFIED. Initialized on 02/25/20 08:03 - END OF NOTE Assessment/Plan (1) Pneumonia Current Visit: Yes Status: Acute Qualifiers: Laterality: unspecified laterality Lung location: unspecified part of lung Assessment & Plan: Chief Complaint Diagnosis Pneumonia Allergies Allergy/AdvReac Type Severity Reaction Status Date / Time meperidine [From Demerol] AdvReac Intermediate Verified 02/19/20 17:16 Vital Signs (Last 24 hours) Temp Pulse Resp BP Pulse Ox 02/25/20 12:28 98.1 F 59 L 18 120/59 94 L 02/25/20 12:00 98.1 F 62 27 H 131/74 94 L 02/25/20 11:00 16 02/25/20 10:00 16 02/25/20 09:53 99.0 F 50 L 14 155/60 94 L 02/25/20 09:00 26 H 02/25/20 08:00 16 02/25/20 07:40 60 18 94 L 02/25/20 07:23 98.1 F 68 16 114/55 95 02/25/20 07:00 27 H 02/25/20 06:00 27 H 02/25/20 05:35 60 27 H 95 02/25/20 05:00 20 02/25/20 04:00 98.1 F 68 20 138/71 93 L 02/25/20 03:00 20 02/25/20 02:00 65 20 92 L 02/25/20 00:59 25 H 02/25/20 00:00 30 H 02/24/20 23:51 98.4 F 67 18 138/71 91 L 02/24/20 23:00 23 02/24/20 21:47 67 18 94 L 02/24/20 21:00 23 02/24/20 20:30 64 16 93 L 02/24/20 20:00 98.5 F 72 18 126/64 94 L 02/24/20 18:40 21 02/24/20 17:53 61 18 92 L 02/24/20 17:00 22 02/24/20 16:00 98.8 F 62 18 108/62 94 L 02/24/20 15:00 18 02/24/20 14:00 60 18 92 L Home Medications Medication Instructions Recorded Confirmed Last Taken Type Albuterol Sulfate [Albuterol 2 puff IH Q6HPRN PRN 02/19/20 02/19/20 Unknown History Sulfate Hfa] Aspirin EC 81 mg [Ecotrin 81 81 mg PO QHS 02/19/20 02/19/20 Unknown History mg] Atorvastatin Calcium [Lipitor] 10 mg PO DAILY 02/19/20 02/19/20 Unknown History Cyanocobalamin (Vitamin B-12) 1,000 mcg SL DAILY 02/19/20 02/19/20 Unknown History [Vitamin B-12] Fluticasone Propionate [Flonase 1 spray NS DAILY 02/19/20 02/19/20 Unknown History Allergy Relief] Levothyroxine Sodium 100 mcg PO DAILY 02/19/20 02/19/20 Unknown History Meclizine HCl 12.5 mg PO TIDPRN 02/19/20 02/19/20 Unknown History Multivitamin [Multivitamins] 1 each PO DAILY 02/19/20 02/19/20 Unknown History Omeprazole 20 mg PO DAILY 02/19/20 02/19/20 Unknown History Potassium Chloride 8 meq PO BID 02/19/20 02/19/20 Unknown History Sertraline HCl 100 mg PO BID 02/19/20 02/19/20 Unknown History buPROPion HCl [Bupropion HCl Sr] 150 mg PO BID 02/19/20 02/19/20 Unknown History Current Medications Generic Name Dose Route Start Last Admin Trade Name Freq PRN Reason Stop Dose Admin Acetaminophen 650 mg 02/19/20 15:22 02/23/20 14:08 Tylenol 325 Mg PO 03/20/20 15:21 650 mg Q4H PRN PRN Administration PAIN, FEVER, HEADACHE Albuterol Sulfate 2 puff 02/20/20 06:59 Ventolin Common Canister IH 03/21/20 06:58 Q6H PRN PRN SHORTNESS OF BREATH Aspirin 81 mg 02/19/20 22:00 02/24/20 21:44 Ecotrin 81 Mg PO 03/20/20 21:59 81 mg HS DAVID Administration Bupropion HCl 150 mg 02/19/20 22:00 02/25/20 10:01 Wellbutrin Sr 150 Mg PO 03/20/20 21:59 150 mg BID DAVID Administration Cyanocobalamin 1,000 mcg 02/20/20 10:00 02/25/20 10:02 Vitamin B-12 500 Mcg PO 03/21/20 09:59 1,000 mcg DAILY DAVID Administration Diphenoxylate HCl/Atropine 1 tablet 02/21/20 09:41 02/23/20 14:08 Lomotil PO 03/22/20 09:40 1 tablet Q4H PRN PRN Administration Enoxaparin Sodium 40 mg 02/19/20 22:00 02/25/20 10:01 Enoxaparin Sodium SQ 03/20/20 21:59 40 mg DAILY DAVID Administration Fluticasone Propionate 0 gm 02/20/20 10:00 02/25/20 10:39 Flonase Nasal NS 03/21/20 09:59 1 gm DAILY DAVID Administration Remdesivir 100 mg/ Sodium 100 mls @ 100 mls/hr 02/23/20 10:00 02/25/20 10:00 Chloride IV 02/26/20 10:59 100 mls/hr Q24H DAVID Administration Levothyroxine Sodium 100 mcg 02/20/20 10:00 02/25/20 05:03 Synthroid 100 Mcg PO 03/21/20 09:59 100 mcg DAILY@0600 DAVID Administration Loperamide HCl 2 mg 02/20/20 18:51 02/23/20 20:54 Imodium 2 Mg PO 03/21/20 18:50 2 mg Q4HPRN PRN Administration DIARRHEA Lorazepam 1 mg 02/22/20 10:34 02/23/20 14:08 Ativan 1 Mg PO 03/23/20 10:33 1 mg Q8H PRN PRN Administration ANXIETY Magnesium Oxide 400 mg 02/24/20 23:10 02/25/20 10:02 Mag-Ox 400 PO 03/25/20 23:08 400 mg BID DAVID Administration Meclizine HCl 12.5 mg 02/20/20 07:15 02/21/20 22:49 Antivert 25 Mg PO 03/20/20 18:07 12.5 mg TID PRN PRN Administration DIZZINESS Multivitamins Therapeutic 1 tab 02/20/20 10:00 02/25/20 10:02 Theragran Multivitamin PO 03/21/20 09:59 1 tab DAILY DAVID Administration Ondansetron HCl 4 mg 02/21/20 09:01 02/21/20 20:14 Zofran 4 Mg/2 Ml Vial IV 03/22/20 08:59 4 mg Q4H PRN PRN Administration NAUSEA/VOMITING Pantoprazole Sodium 40 mg 02/20/20 10:00 02/25/20 10:03 Protonix 40mg Tablet PO 03/21/20 09:59 40 mg DAILY DAVID Administration Potassium Chloride 20 meq 02/25/20 10:00 02/25/20 10:03 Klor Con 10 Meq PO 03/26/20 09:59 20 meq TID DAVID Administration Sertraline HCl 100 mg 02/19/20 22:00 02/25/20 10:02 Zoloft 50 Mg Tablet PO 03/20/20 21:59 100 mg BID DAVID Administration Simvastatin 10 mg 02/20/20 10:00 02/25/20 10:02 Zocor 10mg PO 03/21/20 09:59 10 mg DAILY DAVID Administration Discontinued Medications Generic Name Dose Route Start Last Admin Trade Name Freq PRN Reason Stop Dose Admin Sodium Chloride 1,000 mls @ 100 mls/hr 02/19/20 12:00 02/19/20 12:08 Sodium Chloride 0.9% 1000 Ml IV 03/20/20 11:59 100 mls/hr .Q10H DAVID Administration Ceftriaxone Sodium/Dextrose 1 g in 50 mls @ 100 mls/hr 02/19/20 13:16 14:56 Rocephin 1 Gm-D5w 50 Ml Bag IV 02/19/20 13:45 100 mls/hr STAT STA 100 mls/hr Administration Ceftriaxone Sodium/Dextrose Confirm 02/19/20 14:52 Rocephin 1 Gm-D5w 50 Ml Bag Administered 02/19/20 14:53 Dose 1 g in 50 mls @ ud IV .STK-MED ONE Sodium Chloride Confirm 02/19/20 12:05 Sodium Chloride 0.9% 1000 Ml Administered 02/19/20 12:06 Dose 1,000 mls @ ud .ROUTE .STK-MED ONE Azithromycin 500 mg in 250 mls @ 250 mls/hr 02/19/20 22:00 02/19/20 21:39 Zithromax 500 Mg/ 250 Ml Nacl Premix IV 03/20/20 21:59 250 mls/hr Q24H22 DAVID Administration Ceftriaxone Sodium/Dextrose 1 g in 50 mls @ 100 mls/hr 02/20/20 10:00 10:42 Rocephin 1 Gm-D5w 50 Ml Bag IV 03/21/20 09:59 100 mls/hr Q24H10 DAVID Administration Potassium Chloride 20 meq in 100 mls @ 50 mls/hr 02/19/20 15:22 02/19/20 16: 22 Potassium Chloride 20 Meq In Water 100ml IV 02/19/20 17:21 50 mls/hr STAT ONE Administration Sodium Chloride 1,000 mls @ 50 mls/hr 02/19/20 15:22 02/23/20 21:40 Sodium Chloride 0.9% 1000 Ml IV 03/20/20 15:21 50 mls/hr .Q20H DAVID Administration Potassium Chloride 20 meq in 100 mls @ 50 mls/hr 02/19/20 21:54 02/20/20 06: 02 Potassium Chloride 20 Meq In Water 100ml IV 02/19/20 23:53 50 mls/hr STAT ONE Administration Potassium Chloride 20 meq in 100 mls @ 50 mls/hr 02/20/20 05:57 02/20/20 07: 58 Potassium Chloride 20 Meq In Water 100ml IV 02/20/20 07:56 Not Given STAT ONE Potassium Chloride 40 meq/ 274 mls @ 68 mls/hr 02/20/20 12:00 02/20/20 12:53 Lidocaine HCl 4 ml/ Sodium IV 02/20/20 16:01 68 mls/hr Chloride 1XONLY ONE Administration Remdesivir 200 mg/ Sodium 250 mls @ 250 mls/hr 02/22/20 10:30 02/22/20 10:30 Chloride IV 02/22/20 11:29 250 mls/hr ONCE ONE Administration Potassium Chloride 20 meq in 100 mls @ 50 mls/hr 02/24/20 07:30 02/24/20 09: 50 Potassium Chloride 20 Meq In Water 100ml IV 02/24/20 11:29 50 mls/hr Q2H DAVID Administration Potassium Chloride 20 meq in 100 mls @ 50 mls/hr 02/24/20 15:00 02/24/20 17: 11 Potassium Chloride 20 Meq In Water 100ml IV 02/24/20 18:59 50 mls/hr Q2H DAVID Administration Potassium Chloride Confirm 02/24/20 14:52 Potassium Chloride 20 Meq In Water 100ml Administered 02/24/20 14:53 Dose 100 mls @ ud IV .STK-MED ONE Sodium Chloride 500 mls @ 50 mls/hr 02/24/20 15:00 02/24/20 17:11 Sodium Chloride 0.9% 500 Ml IV 03/25/20 14:59 50 mls/hr .Q10H DAVID Administration Magnesium Oxide 400 mg 02/20/20 11:52 02/24/20 09:20 Mag-Ox 400 PO 03/21/20 11:51 400 mg DAILY DAVID Administration Meclizine HCl 12.5 mg 02/19/20 18:08 Antivert 25 Mg PO 03/20/20 21:59 TID PRN DIZZINESS Metronidazole 500 mg 02/21/20 10:00 02/21/20 14:53 Flagyl 500 Mg PO 03/22/20 09:59 500 mg TID DAVID Administration Non-Formulary Medication 1 each 02/20/20 07:45 02/20/20 10:45 Pharmacy Dosing Request 02/20/20 07:46 Not Given NOW ONE Non-Formulary Medication 1 each 02/20/20 11:52 02/22/20 07:20 Pharmacy Dosing Request 02/20/20 11:53 1 each STAT ONE Administration Ondansetron HCl 4 mg 02/19/20 11:50 02/19/20 12:08 Zofran 4 Mg/2 Ml Vial IV 02/19/20 11:51 4 mg STAT ONE Administration Ondansetron HCl Confirm 02/19/20 12:05 Zofran 4 Mg/2 Ml Vial Administered 02/19/20 12:06 Dose 4 mg .ROUTE .STK-MED ONE Ondansetron HCl 4 mg 02/19/20 15:22 02/21/20 05:46 Zofran 4 Mg/2 Ml Vial IV 03/20/20 15:21 4 mg Q6H PRN PRN Administration NAUSEA/VOMITING Potassium Chloride 10 meq 02/19/20 22:00 02/24/20 21:44 Klor Con 10 Meq PO 03/20/20 21:59 10 meq BID DAVID Administration Potassium Chloride 10 meq 02/22/20 10:00 02/22/20 10:27 Klor Con 10 Meq PO 02/22/20 10:01 10 meq STAT ONE Administration Prednisone 20 mg 02/20/20 10:00 02/21/20 09:07 Deltasone 20 Mg PO 03/21/20 09:59 20 mg DAILY DAVID Administration Intake & Output (Last 24 hours) 02/23/20 02/24/20 02/25/20 02/26/20 11:59 11:59 11:59 11:59 Intake Total 2646 2246 1840 Output Total 1658 2325 1350 Balance 990 589 490 Weight 90 kg 91.2 kg 90.5 kg Laboratory Results (Last 24 hours) 02/25/20 02/25/20 02/25/20 05:00 05:00 05:00 WBC RBC Hgb Hct MCV MCH MCHC RDW Plt Count MPV D-Dimer 769 H* Sodium 136 L Potassium 3.2 L Chloride 102 Carbon Dioxide 27 Anion Gap 10.2 BUN 8 Creatinine 0.52 Estimated GFR > 60.0 Glucose 97 Calcium 7.8 L Magnesium 1.3 L Total Bilirubin 0.50 AST 39 H ALT 19 Alkaline Phosphatase 57 Serum Total Protein 5.4 L Albumin 2.7 L 02/25/20 02/24/20 02/24/20 05:00 22:44 14:05 WBC 5.3 RBC 3.18 L Hgb 10.4 L Hct 31.4 L MCV 98.7 MCH 32.7 H MCHC 33.1 RDW 12.8 Plt Count 244 MPV 8.0 D-Dimer Sodium Potassium 3.0 L 2.9 L* Chloride Carbon Dioxide Anion Gap BUN Creatinine Estimated GFR Glucose Calcium Magnesium 1.3 L Total Bilirubin AST ALT Alkaline Phosphatase Serum Total Protein Albumin Orders (Last 24 hours) Category Date Time Status Order K Level 2 hours post-inf 2 HRS POST K-INFUSED Care 02/24/20 14:48 Completed CBC DAILY Lab 02/25/20 05:00 Completed CBC DAILY Lab 02/26/20 04:00 Ordered CMP DAILY Lab 02/25/20 05:00 Completed CMP DAILY Lab 02/26/20 04:00 Ordered D-DIMER QUANTITATIVE DAILY Lab 02/25/20 05:00 Completed D-DIMER QUANTITATIVE DAILY Lab 02/26/20 04:00 Ordered MAG [MAGNESIUM] Routine Lab 02/25/20 05:00 Completed MAGNESIUM Urgent Lab 02/24/20 22:44 Completed Potassium (Lab Test) [Potassium] Urgent Lab 02/24/20 14:05 Completed Potassium (Lab Test) [Potassium] Urgent Lab 02/24/20 22:44 Completed Magnesium Oxide 400 mg [Mag-Ox 400] Med 02/24/20 23:10 Active 400 mg PO BID NaCl 0.9% 500 ml [Sodium Chloride 0.9% 500 ML] 500 ml Med 02/24/20 15:00 Discontinued IV 50 mls/hr Potassium Chloride 10 Meq Tab* [Klor Con 10 MEQ] Med 02/25/20 10:00 Active 20 meq PO TID Potassium Chloride 20Meq/100Ml [POTASSIUM CHLORIDE 20 Med 02/24/20 15:00 Discontinued mEq IN WATER 100ML] 20 meq in 100 ml IV Q2H Potassium Chloride 20Meq/100Ml [POTASSIUM CHLORIDE 20 Med 02/24/20 14:52 Discontinued mEq IN WATER 100ML] 100 ml IV UD Patient Care Notes (Last 24 hours) 02/25/20 12:31 AUDITOR/QUALITY Note by Padmini Bearden Patient up sitting in a chair eatting lunch and watching TV Initialized on 02/25/20 12:31 - END OF NOTE 02/25/20 11:35 Nutrition Note by Trisha Booth F/u Note: House Regular diet con't with 25-50% po intake. admission weight 85.6 kg/ current weight 90.5 kg. Labs 02/24= Na 136, K+ 3.2, alb 2.7, Mg 1.3, hgb 10.4, hct 31.4. + fluid balance. goal of consuming >=50% of meals not met 100% and ongoing. Recommend to con't with regular diet and goals. Will monitor and f/u prn. T.REFUGIO Booth Initialized on 02/25/20 11:35 - END OF NOTE 02/25/20 07:45 (created 02/25/20 08:03) Respiratory Note by Josselyn Moses PT GOT UP TO THE BATHROOM ON ROOM AIR. PT'S O2 SAT ON ROOM AIR WHILE WALKING WAS 84%. PT WAS PLACED BACK ON 2LPM NASAL CANNULA. O2 SAT INCREASED TO 94%. NURSE NOTIFIED. Initialized on 02/25/20 08:03 - END OF NOTE 02/24/20 23:11 SBAR Note by Josselyn Patino SITUATION I am calling about KECIA HURTADO the patient's code status is Full Code The problem I am calling about is: critical K+ and Mag levels Guidelines I am concerned about the: BP because it's over 200 or < 100 or 30 mmHg below usual Pulse because it's >130 or < 40 and the patient is symptomatic Respiration because it's < 8 or > 30 Temperature because it's <96 or >104 Urine output because it's ,25ml/hr or >200ml/8hrs O2 saturation because it's < 88% on Other: Vital Signs (Last 4 hours) Temp Pulse Resp BP Pulse Ox 02/24/20 21:47 67 18 94 L 02/24/20 21:00 23 02/24/20 20:30 64 16 93 L 02/24/20 20:00 98.5 F 72 18 126/64 94 L Diagnois, Code Status Date of Arrival on Unit 02/19/20 Admitted From Emergency Dept Diagnosis Pneumonia Resucitation Status Full Code Intake and Output 24 Hours 02/24/20 02/25/20 06:59 06:59 Intake Total 2674 1360 Output Total 2275 1250 Balance 399 110 Weight 91.2 kg Intake: Intake, Oral Amount 1680 960 Intake, IV Amount 994 400 Output: Output, Urine Amount 2275 1250 Other: Number of Bowel Movements 2 1 Physical Assessment Anxiety Level Awake,Calm,Low Mental Status Alert Patient Orientation Person,Place,Time Coma Scale Total 15 Breath Sounds [Posterior Clear Bilateral Throughout] Breath Sounds [Anterior/ Clear Posterior Bilateral Throughout ] Breath Sounds [Anterior/ Clear Posterior Bilateral Throughout ] Cardiac Rhythm-S[facility] Sinus Rhythm,1st Degree HB Change from Baseline: No Bowel Sounds [All Quadrants] Present,Active Abdomen Description Soft,Large,Non-Tender Urine Appearance Clear Urine Color Straw Skin Color [place] Skin Temperature Warm PAST MEDICAL HISTORY Neurological History No Pertinent History ENT History No Pertinent History Endocrine Medical History No Pertinent History Respiratory History No Pertinent History Cardiac History Hypertension GI Medical History No Pertinent History History No Pertinent History Reproductive Disorders No Pertinent History Pyscho-Social History No Pertinent History Lab Results (Last 24 Hours) 02/24/20 02/24/20 02/24/20 Range/Units 22:44 14:05 07:44 WBC (4.0-10.5) K/mm3 RBC (4.1-5.4) M/mm3 Hgb (12.0-16.0) gm/dl Hct (35-47) % MCV (78-100) fl MCH (26-32) pg MCHC (32-36) g/dl RDW (11.5-14.0) % Plt Count (150-450) K/mm3 MPV (7.5-11.0) fl D-Dimer (215-500) ng/mL Sodium (137-145) mmol/L Potassium 3.0 L 2.9 L* (3.5-5.1) mmol/L Chloride (98-107) mmol/L Carbon Dioxide (22-30) mmol/L Anion Gap (5-15) MEQ/L BUN (7-17) mg/dL Creatinine (0.52-1.04) mg/dL Estimated GFR ML/MIN Glucose (74-106) mg/dL Calcium (8.4-10.2) mg/dL Magnesium 1.3 L (1.6-2.3) mg/dL Total Bilirubin (0.2-1.3) mg/dL AST (14-36) U/L ALT (0-35) U/L Alkaline Phosphatase (38-126) U/L Serum Total Protein (6.3-8.2) g/dL Albumin (3.5-5.0) g/dL Urine Color YELLOW (YELLOW) Urine Appearance CLEAR (CLEAR) Urine pH 8.0 (5-6) Ur Specific [place] 1.006 (1.005-1.025) Urine Protein NEGATIVE (Negative) Urine Ketones TRACE (NEGATIVE) Urine Blood NEGATIVE (0-5) Rizwan/ul Urine Nitrite NEGATIVE (NEGATIVE) Urine Bilirubin NEGATIVE (NEGATIVE) Urine Urobilinogen NEGATIVE (0-1) mg/dL Ur Leukocyte Esterase NEGATIVE (NEGATIVE) Urine WBC (Auto) 3-5 (0-5) /HPF Urine RBC (Auto) NONE (0-2) /HPF U Epithel Cells (Auto) NONE (FEW) /HPF Urine Bacteria (Auto) NONE (NEGATIVE) /HPF Urine Mucus (Auto) SLIGHT (NEGATIVE) /HPF Urine Culture Reflexed NO (NO) Urine Glucose NEGATIVE (NEGATIVE) mg/dL 02/24/20 02/24/20 02/24/20 Range/Units 05:05 05:05 05:05 WBC 4.8 (4.0-10.5) K/mm3 RBC 3.06 L (4.1-5.4) M/mm3 Hgb 10.1 L (12.0-16.0) gm/dl Hct 30.4 L (35-47) % MCV 99.3 (78-100) fl MCH 33.0 H (26-32) pg MCHC 33.2 (32-36) g/dl RDW 12.8 (11.5-14.0) % Plt Count 222 (150-450) K/mm3 MPV 8.3 (7.5-11.0) fl D-Dimer 798 H* (215-500) ng/mL Sodium 135 L (137-145) mmol/L Potassium 2.9 L* (3.5-5.1) mmol/L Chloride 100 (98-107) mmol/L Carbon Dioxide 25 (22-30) mmol/L Anion Gap 12.9 (5-15) MEQ/L BUN 9 (7-17) mg/dL Creatinine 0.50 L (0.52-1.04) mg/dL Estimated GFR > 60.0 ML/MIN Glucose 87 (74-106) mg/dL Calcium 7.5 L (8.4-10.2) mg/dL Magnesium (1.6-2.3) mg/dL Total Bilirubin 0.40 (0.2-1.3) mg/dL AST 37 H (14-36) U/L ALT 17 (0-35) U/L Alkaline Phosphatase 51 (38-126) U/L Serum Total Protein 5.3 L (6.3-8.2) g/dL Albumin 2.7 L (3.5-5.0) g/dL Urine Color (YELLOW) Urine Appearance (CLEAR) Urine pH (5-6) Ur Specific [place] (1.005-1.025) Urine Protein (Negative) Urine Ketones (NEGATIVE) Urine Blood (0-5) Rizwan/ul Urine Nitrite (NEGATIVE) Urine Bilirubin (NEGATIVE) Urine Urobilinogen (0-1) mg/dL Ur Leukocyte Esterase (NEGATIVE) Urine WBC (Auto) (0-5) /HPF Urine RBC (Auto) (0-2) /HPF U Epithel Cells (Auto) (FEW) /HPF Urine Bacteria (Auto) (NEGATIVE) /HPF Urine Mucus (Auto) (NEGATIVE) /HPF Urine Culture Reflexed (NO) Urine Glucose (NEGATIVE) mg/dL Orders (Last 24 Hours) Category Date Time Status Order K Level 2 hours post-inf 2 HRS POST K-INFUSED Care 02/24/20 07:18 Active CBC DAILY Lab 02/25/20 04:00 Ordered CBC DAILY Lab 02/26/20 04:00 Ordered CMP DAILY Lab 02/25/20 04:00 Ordered CMP DAILY Lab 02/26/20 04:00 Ordered D-DIMER QUANTITATIVE DAILY Lab 02/25/20 04:00 Ordered D-DIMER QUANTITATIVE DAILY Lab 02/26/20 04:00 Ordered MAG [MAGNESIUM] Urgent Lab 02/24/20 22:00 Ordered Magnesium Oxide 400 mg [Mag-Ox 400] Med 02/24/20 23:10 Ordered 400 mg PO BID NaCl 0.9% 500 ml [Sodium Chloride 0.9% 500 ML] 500 ml Med 02/24/20 15:00 Active IV 50 mls/hr Potassium Chloride 10 Meq Tab* [Klor Con 10 MEQ] Med 02/25/20 10:00 Ordered 20 meq PO TID Nursing Notes (Last 12 hours) 02/24/20 14:45 (created 02/24/20 17:29) Nursing Note by Chloé Chow dr. updated on K 2.9. new orders for 40meq k-rider. Initialized on 02/24/20 17:29 - END OF NOTE 02/24/20 12:49 Nursing Note by Chloé Chow assisted back to bed, tolerated well. Initialized on 02/24/20 12:49 - END OF NOTE 02/24/20 12:05 (created 02/24/20 12:47) Nursing Note by Chloé Chow assisted to chair. tolerated well. potassium infusion complete. ivf dc'd. Initialized on 02/24/20 12:47 - END OF NOTE Active Visit Medications Generic Name Dose Route Start Last Admin Trade Name Freq PRN Reason Stop Dose Admin Acetaminophen 650 mg 02/19/20 15:22 02/23/20 14:08 Tylenol 325 Mg PO 03/20/20 15:21 650 mg Q4H PRN PRN Administration PAIN, FEVER, HEADACHE Albuterol Sulfate 2 puff 02/20/20 06:59 Ventolin Common Canister IH 03/21/20 06:58 Q6H PRN PRN SHORTNESS OF BREATH Aspirin 81 mg 02/19/20 22:00 02/24/20 21:44 Ecotrin 81 Mg PO 03/20/20 21:59 81 mg HS DAVID Administration Bupropion HCl 150 mg 02/19/20 22:00 02/24/20 21:44 Wellbutrin Sr 150 Mg PO 03/20/20 21:59 150 mg BID DAVID Administration Cyanocobalamin 1,000 mcg 02/20/20 10:00 02/24/20 09:20 Vitamin B-12 500 Mcg PO 03/21/20 09:59 1,000 mcg DAILY DAVID Administration Diphenoxylate HCl/Atropine 1 tablet 02/21/20 09:41 02/23/20 14:08 Lomotil PO 03/22/20 09:40 1 tablet Q4H PRN PRN Administration Enoxaparin Sodium 40 mg 02/19/20 22:00 02/24/20 09:19 Enoxaparin Sodium SQ 03/20/20 21:59 40 mg DAILY DAVID Administration Fluticasone Propionate 0 gm 02/20/20 10:00 02/24/20 09:20 Flonase Nasal NS 03/21/20 09:59 1 gm DAILY DAVID Administration Remdesivir 100 mg/ Sodium 100 mls @ 100 mls/hr 02/23/20 10:00 02/24/20 09:50 Chloride IV 02/26/20 10:59 100 mls/hr Q24H DAVID Administration Sodium Chloride 500 mls @ 50 mls/hr 02/24/20 15:00 02/24/20 17:11 Sodium Chloride 0.9% 500 Ml IV 03/25/20 14:59 50 mls/hr .Q10H DAVID Administration Levothyroxine Sodium 100 mcg 02/20/20 10:00 02/24/20 06:05 Synthroid 100 Mcg PO 03/21/20 09:59 100 mcg DAILY@0600 DAVID Administration Loperamide HCl 2 mg 02/20/20 18:51 02/23/20 20:54 Imodium 2 Mg PO 03/21/20 18:50 2 mg Q4HPRN PRN Administration DIARRHEA Lorazepam 1 mg 02/22/20 10:34 02/23/20 14:08 Ativan 1 Mg PO 03/23/20 10:33 1 mg Q8H PRN PRN Administration ANXIETY Magnesium Oxide 400 mg 02/24/20 23:10 Mag-Ox 400 PO 03/25/20 23:08 BID DAVID Meclizine HCl 12.5 mg 02/20/20 07:15 02/21/20 22:49 Antivert 25 Mg PO 03/20/20 18:07 12.5 mg TID PRN PRN Administration DIZZINESS Multivitamins Therapeutic 1 tab 02/20/20 10:00 02/24/20 10:01 Theragran Multivitamin PO 03/21/20 09:59 1 tab DAILY DAVID Administration Ondansetron HCl 4 mg 02/21/20 09:01 02/21/20 20:14 Zofran 4 Mg/2 Ml Vial IV 03/22/20 08:59 4 mg Q4H PRN PRN Administration NAUSEA/VOMITING Pantoprazole Sodium 40 mg 02/20/20 10:00 02/24/20 09:20 Protonix 40mg Tablet PO 03/21/20 09:59 40 mg DAILY DAVID Administration Potassium Chloride 20 meq 02/25/20 10:00 Klor Con 10 Meq PO 03/26/20 09:59 TID DAVID Sertraline HCl 100 mg 02/19/20 22:00 02/24/20 21:44 Zoloft 50 Mg Tablet PO 03/20/20 21:59 100 mg BID DAVID Administration Simvastatin 10 mg 02/20/20 10:00 02/24/20 09:20 Zocor 10mg PO 03/21/20 09:59 10 mg DAILY DAVID Administration Home Medications Medication Instructions Recorded Confirmed Last Taken Type Albuterol Sulfate [Albuterol 2 puff IH Q6HPRN PRN 02/19/20 02/19/20 Unknown History Sulfate Hfa] Aspirin EC 81 mg [Ecotrin 81 81 mg PO QHS 02/19/20 02/19/20 Unknown History mg] Atorvastatin Calcium [Lipitor] 10 mg PO DAILY 02/19/20 02/19/20 Unknown History Cyanocobalamin (Vitamin B-12) 1,000 mcg SL DAILY 02/19/20 02/19/20 Unknown History [Vitamin B-12] Fluticasone Propionate [Flonase 1 spray NS DAILY 02/19/20 02/19/20 Unknown History Allergy Relief] Levothyroxine Sodium 100 mcg PO DAILY 02/19/20 02/19/20 Unknown History Meclizine HCl 12.5 mg PO TIDPRN 02/19/20 02/19/20 Unknown History Multivitamin [Multivitamins] 1 each PO DAILY 02/19/20 02/19/20 Unknown History Omeprazole 20 mg PO DAILY 02/19/20 02/19/20 Unknown History Potassium Chloride 8 meq PO BID 02/19/20 02/19/20 Unknown History Sertraline HCl 100 mg PO BID 02/19/20 02/19/20 Unknown History buPROPion HCl [Bupropion HCl Sr] 150 mg PO BID 02/19/20 02/19/20 Unknown History ASSESSMENT This is what I think the problem is: (Say what you think is the problem) The problem seems to be; * Cardiac * Infection * Neurological * Respiratory I am not sure what the problem is but the patient is deteriorating. The patient seems to be unstable and may get worse, we need to do something. RECOMMENDATION From Physician: continue Remdenasevir, for 1 more day Physician notified at 2311 New Orders received: increase PO K+ to 20 MEQ TID and increase Mag Ox to 400 Mg BID first dose of each now and recheck levels in the AM Initialized on 02/24/20 23:11 - END OF NOTE 02/24/20 14:45 (created 02/24/20 17:29) Nursing Note by Chloé Chow dr. updated on K 2.9. new orders for 40meq k-rider. Initialized on 02/24/20 17:29 - END OF NOTE Code(s): J18.9 - PNEUMONIA, UNSPECIFIED ORGANISM (2) Suspected COVID-19 virus infection Current Visit: Yes Status: Acute Code(s): R68.89 - OTHER GENERAL SYMPTOMS AND SIGNS
[2020-02-25] MEDS: ECOTRIN 81 MG PO SCH (21:45)
[2020-02-25] MEDS: TYLENOL 325 MG PO PRN (23:25)
[2020-02-26 05:08] LABS: Hematocrit 33.7 % (35-47); Hemoglobin 11.4 gm/dl (12.0-16.0); Mean Cell Volume 98.8 fl (78-100); Mean Corpuscular Hemoglobin 33.4 pg (26-32); Mean Corpuscular Hgb Concent. 33.8 g/dl (32-36); Mean Platelet Volume 8.1 fl (7.5-11.0); Platelet Count 264 K/mm3 (150-450); Red Blood Count 3.41 M/mm3 (4.1-5.4); Red Cell Distribution Width 12.8 % (11.5-14.0); White Blood Count 5.1 K/mm3 (4.0-10.5)
[2020-02-26 05:26] LABS: ALBUMIN 2.9 g/dL (3.5-5.0); ALKALINE PHOSPHATASE 67 U/L (38-126); ANION GAP 7.8 MEQ/L (5-15); BLOOD UREA NITROGEN 9 mg/dL (7-17); CHLORIDE 104 mmol/L (98-107); Calcium 8.2 mg/dL (8.4-10.2); Carbon Dioxide 29 mmol/L (22-30); Creatinine 1 0.56 mg/dL (0.52-1.04); Glucose 111 mg/dL (74-106); Potassium 3.8 mmol/L (3.5-5.1); SGOT/AST 39 U/L (14-36); SGPT/ALT 21 U/L (0-35); SODIUM 137 mmol/L (137-145); Total Protein 5.8 g/dL (6.3-8.2)
[2020-02-26] MEDS: SYNTHROID 100 MCG PO SCH (05:55)
[2020-02-26 08:00] VITALS: BP 138/67
--- NOTE | 2020-02-26 09:19 | PCM.NOTE ---
Date and Time: 02/26/20917 Subjective Assessment: doing better, still short of breath, - Review of Systems Constitutional: No Fever, No Chills Eyes: No Symptoms Ears, Nose, & Throat: No Symptoms Respiratory: No Cough, No Short Of Breath Cardiac: No Chest Pain, No Edema, No Syncope Abdominal/Gastrointestinal: No Abdominal Pain, No Nausea, No Vomiting, No Diarrhea Genitourinary Symptoms: No Dysuria Musculoskeletal: No Back Pain, No Neck Pain Skin: No Rash Neurological: No Dizziness, No Focal Weakness, No Sensory Changes Psychological: No Symptoms Endocrine: No Symptoms Hematologic/Lymphatic: No Symptoms Immunological/Allergic: No Symptoms Objective Exam General Appearance: no apparent distress, alert Neurologic Exam: alert, oriented x 3, cooperative, normal mood/affect, nml cerebellar function, sensation nml, No motor deficits Skin Exam: normal color, warm, dry Eye Exam: PERRL, EOMI, eyes nml inspection Ears, Nose, Throat Exam: normal ENT inspection, pharynx normal, moist mucous membranes Neck Exam: normal inspection, non-tender, supple, full range of motion Respiratory Exam: normal breath sounds, diminished breath sounds, rhonchi, wheezing, No respiratory distress Cardiovascular Exam: regular rate/rhythm, normal heart sounds Gastrointestinal/Abdomen Exam: soft, No tenderness, No mass Extremity Exam: normal inspection, normal range of motion Back Exam: normal inspection, normal range of motion, No CVA tenderness, No vertebral tenderness Pelvic Exam: deferred Rectal Exam: deferred OBJECTIVE DATA Vital Signs: Vital Signs - 24 hr Temp Pulse Resp BP Pulse Ox 02/26/20 07:58 98.4 F 62 21 138/67 91 L 02/26/20 07:00 16 02/26/20 06:00 67 22 94 L 02/26/20 05:00 20 02/26/20 04:00 66 20 93 L 02/26/20 03:00 20 02/26/20 02:00 64 20 95 02/26/20 01:00 20 02/26/20 00:00 98.0 F 70 20 140/68 92 L 02/25/20 23:00 12 02/25/20 22:00 62 12 94 L 02/25/20 21:00 18 02/25/20 20:00 98.1 F 75 18 141/71 92 L 02/25/20 19:05 97 02/25/20 19:00 25 H 02/25/20 18:15 98.7 F 60 26 H 157/70 94 L 02/25/20 18:00 25 H 02/25/20 17:00 17 02/25/20 16:57 72 17 93 L 02/25/20 16:00 25 H 02/25/20 15:09 15 02/25/20 15:07 98.7 F 60 143/67 02/25/20 15:00 15 02/25/20 14:00 69 15 95 02/25/20 13:00 25 H 02/25/20 12:28 98.1 F 59 L 18 120/59 94 L 02/25/20 12:00 98.1 F 62 27 H 131/74 94 L 02/25/20 11:00 16 02/25/20 10:00 16 02/25/20 09:53 99.0 F 50 L 14 155/60 94 L Oxygen-Last 24 hours Oxygen Flowrate (L/min)-RT 3 Oxygen Flowrate (L/min)-RT 2 Oxygen Flowrate (L/min)-RT 2 Pain Assessment - Last Documented Pain Intensity 0 Pain Scale Used FLACC Intake and Output: Intake & Output 02/23/20 02/24/20 02/25/20 02/26/20 11:59 11:59 11:59 11:59 Intake Total 2640 2914 1840 940 Output Total 1650 2325 1350 300 Balance 990 589 490 640 Weight 90 kg 91.2 kg 90.5 kg 90.5 kg Lab Results: Lab Results-Last 24 Hours 02/26/20 02/26/20 02/26/20 Range/Units 04:40 04:40 04:40 WBC 5.1 (4.0-10.5) K/mm3 RBC 3.41 L (4.1-5.4) M/mm3 Hgb 11.4 L (12.0-16.0) gm/dl Hct 33.7 L (35-47) % MCV 98.8 (78-100) fl MCH 33.4 H (26-32) pg MCHC 33.8 (32-36) g/dl RDW 12.8 (11.5-14.0) % Plt Count 264 (150-450) K/mm3 MPV 8.1 (7.5-11.0) fl D-Dimer 670 H* (215-500) ng/mL Sodium 137 (137-145) mmol/L Potassium 3.8 (3.5-5.1) mmol/L Chloride 104 (98-107) mmol/L Carbon Dioxide 29 (22-30) mmol/L Anion Gap 7.8 (5-15) MEQ/L BUN 9 (7-17) mg/dL Creatinine 0.56 (0.52-1.04) mg/dL Estimated GFR > 60.0 ML/MIN Glucose 111 H (74-106) mg/dL Calcium 8.2 L (8.4-10.2) mg/dL Total Bilirubin 0.60 (0.2-1.3) mg/dL AST 39 H (14-36) U/L ALT 21 (0-35) U/L Alkaline Phosphatase 67 (38-126) U/L Serum Total Protein 5.8 L (6.3-8.2) g/dL Albumin 2.9 L (3.5-5.0) g/dL Multi-Disciplinary Progress Notes: Multi-Disciplinary Progress Notes 02/25/20 11:35 Nutrition Note by Trisha Booth F/u Note: House Regular diet con't with 25-50% po intake. admission weight 85.6 kg/ current weight 90.5 kg. Labs 02/24= Na 136, K+ 3.2, alb 2.7, Mg 1.3, hgb 10.4, hct 31.4. + fluid balance. goal of consuming >=50% of meals not met 100% and ongoing. Recommend to con't with regular diet and goals. Will monitor and f/u prn. T.REFUGIO Booth Initialized on 02/25/20 11:35 - END OF NOTE Assessment/Plan (1) Pneumonia Current Visit: Yes Status: Acute Qualifiers: Laterality: unspecified laterality Lung location: unspecified part of lung Assessment & Plan: Abnormal Lab Results 02/26/20 02/26/20 02/26/20 Range/Units 04:40 04:40 04:40 RBC 3.41 L (4.1-5.4) M/mm3 Hgb 11.4 L (12.0-16.0) gm/dl Hct 33.7 L (35-47) % MCH 33.4 H (26-32) pg D-Dimer 670 H* (215-500) ng/mL Glucose 111 H (74-106) mg/dL Calcium 8.2 L (8.4-10.2) mg/dL AST 39 H (14-36) U/L Serum Total Protein 5.8 L (6.3-8.2) g/dL Albumin 2.9 L (3.5-5.0) g/dL Last Vital Signs Temp 98.4 F 02/26/20 07:58 Pulse 62 02/26/20 07:58 Resp 21 02/26/20 07:58 BP 138/67 02/26/20 07:58 Pulse Ox 91 L 02/26/20 07:58 Allergies meperidine [From Demerol] Adverse Reaction (Intermediate, Verified 02/19/20 17: 16) nausea/vomiting; "feeling like I'm drunk" Active Medications Acetaminophen (Tylenol 325 Mg) 650 mg PO Q4H PRN PRN PRN Reason: PAIN, FEVER, HEADACHE Stop: 03/20/20 15:21 Last Admin: 02/25/20 23:25 Dose: 650 mg Albuterol Sulfate (Ventolin Common Canister) 2 puff IH Q6H PRN PRN PRN Reason: SHORTNESS OF BREATH Stop: 03/21/20 06:58 Aspirin (Ecotrin 81 Mg) 81 mg PO HS [facility] Stop: 03/20/20 21:59 Last Admin: 02/25/20 21:45 Dose: 81 mg Bupropion HCl (Wellbutrin Sr 150 Mg) 150 mg PO BID DAVID Stop: 03/20/20 21:59 Last Admin: 02/25/20 21:45 Dose: 150 mg Cyanocobalamin (Vitamin B-12 500 Mcg) 1,000 mcg PO DAILY DAVID Stop: 03/21/20 09:59 Last Admin: 02/25/20 10:02 Dose: 1,000 mcg Diphenoxylate HCl/Atropine (Lomotil) 1 tablet PO Q4H PRN PRN Stop: 03/22/20 09:40 Last Admin: 02/23/20 14:08 Dose: 1 tablet Enoxaparin Sodium (Enoxaparin Sodium) 40 mg SQ DAILY DAVID Stop: 03/20/20 21:59 Last Admin: 02/25/20 10:01 Dose: 40 mg Fluticasone Propionate (Flonase Nasal) 0 gm NS DAILY [facility] Stop: 03/21/20 09:59 Last Admin: 02/25/20 10:39 Dose: 1 gm Remdesivir 100 mg/ Sodium (Chloride) 100 mls @ 100 mls/hr IV Q24H [facility] Stop: 02/26/20 10:59 Last Admin: 02/25/20 10:00 Dose: 100 mls/hr Levothyroxine Sodium (Synthroid 100 Mcg) 100 mcg PO DAILY@0600 [facility] Stop: 03/21/20 09:59 Last Admin: 02/26/20 05:55 Dose: 100 mcg Loperamide HCl (Imodium 2 Mg) 2 mg PO Q4HPRN PRN PRN Reason: DIARRHEA Stop: 03/21/20 18:50 Last Admin: 02/23/20 20:54 Dose: 2 mg Lorazepam (Ativan 1 Mg) 1 mg PO Q8H PRN PRN PRN Reason: ANXIETY Stop: 03/23/20 10:33 Last Admin: 02/23/20 14:08 Dose: 1 mg Magnesium Oxide (Mag-Ox 400) 400 mg PO BID [facility] Stop: 03/25/20 23:08 Last Admin: 02/25/20 21:44 Dose: 400 mg Meclizine HCl (Antivert 25 Mg) 12.5 mg PO TID PRN PRN PRN Reason: DIZZINESS Stop: 03/20/20 18:07 Last Admin: 02/21/20 22:49 Dose: 12.5 mg Multivitamins Therapeutic (Theragran Multivitamin) 1 tab PO DAILY [facility] Stop: 03/21/20 09:59 Last Admin: 02/25/20 10:02 Dose: 1 tab Ondansetron HCl (Zofran 4 Mg/2 Ml Vial) 4 mg IV Q4H PRN PRN PRN Reason: NAUSEA/VOMITING Stop: 03/22/20 08:59 Last Admin: 02/21/20 20:14 Dose: 4 mg Pantoprazole Sodium (Protonix 40mg Tablet) 40 mg PO DAILY [facility] Stop: 03/21/20 09:59 Last Admin: 02/25/20 10:03 Dose: 40 mg Potassium Chloride (Klor Con 10 Meq) 20 meq PO TID DAVID Stop: 03/26/20 09:59 Last Admin: 02/25/20 21:45 Dose: 20 meq Sertraline HCl (Zoloft 50 Mg Tablet) 100 mg PO BID DAVID Stop: 03/20/20 21:59 Last Admin: 02/25/20 21:45 Dose: 100 mg Simvastatin (Zocor 10mg) 10 mg PO DAILY DAVID Stop: 03/21/20 09:59 Last Admin: 02/25/20 10:02 Dose: 10 mg Intake & Output 02/25/20 02/26/20 11:59 11:59 Intake Total 1840 940 Output Total 1350 300 Balance 490 640 Weight 90.5 kg 90.5 kg Lab Tests 02/26/20 02/26/20 02/26/20 04:40 04:40 04:40 WBC 5.1 RBC 3.41 L Hgb 11.4 L Hct 33.7 L MCV 98.8 MCH 33.4 H MCHC 33.8 RDW 12.8 Plt Count 264 MPV 8.1 D-Dimer 670 H* Sodium 137 Potassium 3.8 Chloride 104 Carbon Dioxide 29 Anion Gap 7.8 BUN 9 Creatinine 0.56 Estimated GFR > 60.0 Glucose 111 H Calcium 8.2 L Total Bilirubin 0.60 AST 39 H ALT 21 Alkaline Phosphatase 67 Serum Total Protein 5.8 L Albumin 2.9 L Code(s): J18.9 - PNEUMONIA, UNSPECIFIED ORGANISM (2) Suspected COVID-19 virus infection Current Visit: Yes Status: Acute Code(s): R68.89 - OTHER GENERAL SYMPTOMS AND SIGNS
[2020-02-26] MEDS: MAG-OX 400 PO SCH (10:06)
[2020-02-26] MEDS: REMDESIVIR 100 MG in Sodium Chloride 0.9% 100 ML IVPB 100 ML IV SCH (10:06)
[2020-02-26] MEDS: Zocor 10MG PO SCH (10:06)
[2020-02-26] MEDS: Wellbutrin SR 150 MG PO SCH (10:06)
[2020-02-26] MEDS: Vitamin B-12 500 MCG PO SCH (10:06)
[2020-02-26] MEDS: Klor Con 10 MEQ PO SCH ×2 (10:06→15:17)
[2020-02-26] MEDS: ZOLOFT 50 MG TABLET PO SCH (10:06)
[2020-02-26] MEDS: Protonix 40MG Tablet PO SCH (10:06)
[2020-02-26] MEDS: Flonase NASAL NS SCH (10:07)
[2020-02-26] MEDS: ENOXAPARIN SODIUM SQ SCH (10:07)
[2020-02-26] MEDS: THERAGRAN MULTIVITAMIN PO SCH (10:07)
[2020-02-26 12:02] VITALS: PULSE 62
[2020-02-26 14:05] VITALS: O2SAT 93
--- NOTE | 2020-03-01 08:25 | PCM.DS ---
Discharge Summary Date of Admission: 02/19/20 15:10 Admitting Physician: AMELIA STERLING Primary Care Provider: KECIA KINGSTON DO Allergies Allergies meperidine [From Demerol] Adverse Reaction (Intermediate, Verified 02/19/20 17: 16) nausea/vomiting; "feeling like I'm drunk" Hospital Summary - Hospital Course Hospital Course: Laboratory Results 02/26/20 02/26/20 02/26/20 Range/Units 04:40 04:40 04:40 WBC 5.1 (4.0-10.5) K/mm3 RBC 3.41 L (4.1-5.4) M/mm3 Hgb 11.4 L (12.0-16.0) gm/dl Hct 33.7 L (35-47) % MCV 98.8 (78-100) fl MCH 33.4 H (26-32) pg MCHC 33.8 (32-36) g/dl RDW 12.8 (11.5-14.0) % Plt Count 264 (150-450) K/mm3 MPV 8.1 (7.5-11.0) fl Segmented Neutrophils (36.0-66.0) % Band Neutrophils (0.0-2.0) % Lymphocytes (Manual) (24-44) % Monocytes (Manual) (0.0-12.0) % Platelet Estimate (NORMAL) RBC Morphology D-Dimer 670 H* (215-500) ng/mL Sodium 137 (137-145) mmol/L Potassium 3.8 (3.5-5.1) mmol/L Chloride 104 (98-107) mmol/L Carbon Dioxide 29 (22-30) mmol/L Anion Gap 7.8 (5-15) MEQ/L BUN 9 (7-17) mg/dL Creatinine 0.56 (0.52-1.04) mg/dL Estimated GFR > 60.0 ML/MIN Glucose 111 H (74-106) mg/dL Lactic Acid (0.4-2.0) Calcium 8.2 L (8.4-10.2) mg/dL Magnesium (1.6-2.3) mg/dL Ferritin (11.1-264) ng/mL Total Bilirubin 0.60 (0.2-1.3) mg/dL AST 39 H (14-36) U/L ALT 21 (0-35) U/L Alkaline Phosphatase 67 (38-126) U/L Lactate Dehydrogenase (120-246) U/L Serum Total Protein 5.8 L (6.3-8.2) g/dL Albumin 2.9 L (3.5-5.0) g/dL Amylase (30-110) U/L Lipase (23-300) U/L Urine Color (YELLOW) Urine Appearance (CLEAR) Urine pH (5-6) Ur Specific [place] (1.005-1.025) Urine Protein (Negative) Urine Ketones (NEGATIVE) Urine Blood (0-5) Rizwan/ul Urine Nitrite (NEGATIVE) Urine Bilirubin (NEGATIVE) Urine Urobilinogen (0-1) mg/dL Ur Leukocyte Esterase (NEGATIVE) Urine WBC (Auto) (0-5) /HPF Urine RBC (Auto) (0-2) /HPF U Hyaline Cast (Auto) (0-2) /LPF U Epithel Cells (Auto) (FEW) /HPF Urine Bacteria (Auto) (NEGATIVE) /HPF Unidentified Crystals (NEGATIVE) /HPF Other Casts (Auto) (NEGATIVE) /LPF Urine Mucus (Auto) (NEGATIVE) /HPF Urine Culture Reflexed (NO) Urine Glucose (NEGATIVE) mg/dL Stl C. cayetanensis PCR (NEGATIVE) Stl Adenov F 40/41 PCR (NEGATIVE) Stool Astrovirus (PCR) (NEGATIVE) Stool Cryptosporidium PCR (NEGATIVE) Stool EPEC (PCR) (NEGATIVE) Stool EAEC (PCR) (NEGATIVE) Stl E. histolytica PCR (NEGATIVE) Stl P. shigelloides PCR (NEGATIVE) Stool Sapovirus (PCR) (NEGATIVE) St Y.enterocolitica PCR (NEGATIVE) Stool Vibrio (PCR) (NEGATIVE) Stl Vibrio cholerae PCR (NEGATIVE) Stl Norovirus GI/GII PCR (NEGATIVE) Campylobacter (PCR) (NEGATIVE) C. difficile (PCR) (NEGATIVE) COVID-19 (VERONICA) (Not Detected) Enterotoxigenic E. coli (NEGATIVE) E.coli Shiga Toxins (NEGATIVE) Giardia lamblia (NEGATIVE) Monoscreen (Negative) Influenza Type A Ag (NEGATIVE) Influenza Type B Ag (NEGATIVE) RSV (PCR) (Negative) Rotavirus A (PCR) (NEGATIVE) Salmonella (PCR) (NEGATIVE) Shigella (PCR) (NEGATIVE) Group A Strep Antibody (NEGATIVE) 02/25/20 02/25/20 02/25/20 Range/Units 05:00 05:00 05:00 WBC (4.0-10.5) K/mm3 RBC (4.1-5.4) M/mm3 Hgb (12.0-16.0) gm/dl Hct (35-47) % MCV (78-100) fl MCH (26-32) pg MCHC (32-36) g/dl RDW (11.5-14.0) % Plt Count (150-450) K/mm3 MPV (7.5-11.0) fl Segmented Neutrophils (36.0-66.0) % Band Neutrophils (0.0-2.0) % Lymphocytes (Manual) (24-44) % Monocytes (Manual) (0.0-12.0) % Platelet Estimate (NORMAL) RBC Morphology D-Dimer 769 H* (215-500) ng/mL Sodium 136 L (137-145) mmol/L Potassium 3.2 L (3.5-5.1) mmol/L Chloride 102 (98-107) mmol/L Carbon Dioxide 27 (22-30) mmol/L Anion Gap 10.2 (5-15) MEQ/L BUN 8 (7-17) mg/dL Creatinine 0.52 (0.52-1.04) mg/dL Estimated GFR > 60.0 ML/MIN Glucose 97 (74-106) mg/dL Lactic Acid (0.4-2.0) Calcium 7.8 L (8.4-10.2) mg/dL Magnesium 1.3 L (1.6-2.3) mg/dL Ferritin (11.1-264) ng/mL Total Bilirubin 0.50 (0.2-1.3) mg/dL AST 39 H (14-36) U/L ALT 19 (0-35) U/L Alkaline Phosphatase 57 (38-126) U/L Lactate Dehydrogenase (120-246) U/L Serum Total Protein 5.4 L (6.3-8.2) g/dL Albumin 2.7 L (3.5-5.0) g/dL Amylase (30-110) U/L Lipase (23-300) U/L Urine Color (YELLOW) Urine Appearance (CLEAR) Urine pH (5-6) Ur Specific [place] (1.005-1.025) Urine Protein (Negative) Urine Ketones (NEGATIVE) Urine Blood (0-5) Rizwan/ul Urine Nitrite (NEGATIVE) Urine Bilirubin (NEGATIVE) Urine Urobilinogen (0-1) mg/dL Ur Leukocyte Esterase (NEGATIVE) Urine WBC (Auto) (0-5) /HPF Urine RBC (Auto) (0-2) /HPF U Hyaline Cast (Auto) (0-2) /LPF U Epithel Cells (Auto) (FEW) /HPF Urine Bacteria (Auto) (NEGATIVE) /HPF Unidentified Crystals (NEGATIVE) /HPF Other Casts (Auto) (NEGATIVE) /LPF Urine Mucus (Auto) (NEGATIVE) /HPF Urine Culture Reflexed (NO) Urine Glucose (NEGATIVE) mg/dL Stl C. cayetanensis PCR (NEGATIVE) Stl Adenov F 40/41 PCR (NEGATIVE) Stool Astrovirus (PCR) (NEGATIVE) Stool Cryptosporidium PCR (NEGATIVE) Stool EPEC (PCR) (NEGATIVE) Stool EAEC (PCR) (NEGATIVE) Stl E. histolytica PCR (NEGATIVE) Stl P. shigelloides PCR (NEGATIVE) Stool Sapovirus (PCR) (NEGATIVE) St Y.enterocolitica PCR (NEGATIVE) Stool Vibrio (PCR) (NEGATIVE) Stl Vibrio cholerae PCR (NEGATIVE) Stl Norovirus GI/GII PCR (NEGATIVE) Campylobacter (PCR) (NEGATIVE) C. difficile (PCR) (NEGATIVE) COVID-19 (VERONICA) (Not Detected) Enterotoxigenic E. coli (NEGATIVE) E.coli Shiga Toxins (NEGATIVE) Giardia lamblia (NEGATIVE) Monoscreen (Negative) Influenza Type A Ag (NEGATIVE) Influenza Type B Ag (NEGATIVE) RSV (PCR) (Negative) Rotavirus A (PCR) (NEGATIVE) Salmonella (PCR) (NEGATIVE) Shigella (PCR) (NEGATIVE) Group A Strep Antibody (NEGATIVE) 02/25/20 02/24/20 02/24/20 Range/Units 05:00 22:44 14:05 WBC 5.3 (4.0-10.5) K/mm3 RBC 3.18 L (4.1-5.4) M/mm3 Hgb 10.4 L (12.0-16.0) gm/dl Hct 31.4 L (35-47) % MCV 98.7 (78-100) fl MCH 32.7 H (26-32) pg MCHC 33.1 (32-36) g/dl RDW 12.8 (11.5-14.0) % Plt Count 244 (150-450) K/mm3 MPV 8.0 (7.5-11.0) fl Segmented Neutrophils (36.0-66.0) % Band Neutrophils (0.0-2.0) % Lymphocytes (Manual) (24-44) % Monocytes (Manual) (0.0-12.0) % Platelet Estimate (NORMAL) RBC Morphology D-Dimer (215-500) ng/mL Sodium (137-145) mmol/L Potassium 3.0 L 2.9 L* (3.5-5.1) mmol/L Chloride (98-107) mmol/L Carbon Dioxide (22-30) mmol/L Anion Gap (5-15) MEQ/L BUN (7-17) mg/dL Creatinine (0.52-1.04) mg/dL Estimated GFR ML/MIN Glucose (74-106) mg/dL Lactic Acid (0.4-2.0) Calcium (8.4-10.2) mg/dL Magnesium 1.3 L (1.6-2.3) mg/dL Ferritin (11.1-264) ng/mL Total Bilirubin (0.2-1.3) mg/dL AST (14-36) U/L ALT (0-35) U/L Alkaline Phosphatase (38-126) U/L Lactate Dehydrogenase (120-246) U/L Serum Total Protein (6.3-8.2) g/dL Albumin (3.5-5.0) g/dL Amylase (30-110) U/L Lipase (23-300) U/L Urine Color (YELLOW) Urine Appearance (CLEAR) Urine pH (5-6) Ur Specific [place] (1.005-1.025) Urine Protein (Negative) Urine Ketones (NEGATIVE) Urine Blood (0-5) Rizwan/ul Urine Nitrite (NEGATIVE) Urine Bilirubin (NEGATIVE) Urine Urobilinogen (0-1) mg/dL Ur Leukocyte Esterase (NEGATIVE) Urine WBC (Auto) (0-5) /HPF Urine RBC (Auto) (0-2) /HPF U Hyaline Cast (Auto) (0-2) /LPF U Epithel Cells (Auto) (FEW) /HPF Urine Bacteria (Auto) (NEGATIVE) /HPF Unidentified Crystals (NEGATIVE) /HPF Other Casts (Auto) (NEGATIVE) /LPF Urine Mucus (Auto) (NEGATIVE) /HPF Urine Culture Reflexed (NO) Urine Glucose (NEGATIVE) mg/dL Stl C. cayetanensis PCR (NEGATIVE) Stl Adenov F 40/41 PCR (NEGATIVE) Stool Astrovirus (PCR) (NEGATIVE) Stool Cryptosporidium PCR (NEGATIVE) Stool EPEC (PCR) (NEGATIVE) Stool EAEC (PCR) (NEGATIVE) Stl E. histolytica PCR (NEGATIVE) Stl P. shigelloides PCR (NEGATIVE) Stool Sapovirus (PCR) (NEGATIVE) St Y.enterocolitica PCR (NEGATIVE) Stool Vibrio (PCR) (NEGATIVE) Stl Vibrio cholerae PCR (NEGATIVE) Stl Norovirus GI/GII PCR (NEGATIVE) Campylobacter (PCR) (NEGATIVE) C. difficile (PCR) (NEGATIVE) COVID-19 (VERONICA) (Not Detected) Enterotoxigenic E. coli (NEGATIVE) E.coli Shiga Toxins (NEGATIVE) Giardia lamblia (NEGATIVE) Monoscreen (Negative) Influenza Type A Ag (NEGATIVE) Influenza Type B Ag (NEGATIVE) RSV (PCR) (Negative) Rotavirus A (PCR) (NEGATIVE) Salmonella (PCR) (NEGATIVE) Shigella (PCR) (NEGATIVE) Group A Strep Antibody (NEGATIVE) 02/24/20 02/24/20 02/24/20 Range/Units 07:44 05:05 05:05 WBC (4.0-10.5) K/mm3 RBC (4.1-5.4) M/mm3 Hgb (12.0-16.0) gm/dl Hct (35-47) % MCV (78-100) fl MCH (26-32) pg MCHC (32-36) g/dl RDW (11.5-14.0) % Plt Count (150-450) K/mm3 MPV (7.5-11.0) fl Segmented Neutrophils (36.0-66.0) % Band Neutrophils (0.0-2.0) % Lymphocytes (Manual) (24-44) % Monocytes (Manual) (0.0-12.0) % Platelet Estimate (NORMAL) RBC Morphology D-Dimer 798 H* (215-500) ng/mL Sodium 135 L (137-145) mmol/L Potassium 2.9 L* (3.5-5.1) mmol/L Chloride 100 (98-107) mmol/L Carbon Dioxide 25 (22-30) mmol/L Anion Gap 12.9 (5-15) MEQ/L BUN 9 (7-17) mg/dL Creatinine 0.50 L (0.52-1.04) mg/dL Estimated GFR > 60.0 ML/MIN Glucose 87 (74-106) mg/dL Lactic Acid (0.4-2.0) Calcium 7.5 L (8.4-10.2) mg/dL Magnesium (1.6-2.3) mg/dL Ferritin (11.1-264) ng/mL Total Bilirubin 0.40 (0.2-1.3) mg/dL AST 37 H (14-36) U/L ALT 17 (0-35) U/L Alkaline Phosphatase 51 (38-126) U/L Lactate Dehydrogenase (120-246) U/L Serum Total Protein 5.3 L (6.3-8.2) g/dL Albumin 2.7 L (3.5-5.0) g/dL Amylase (30-110) U/L Lipase (23-300) U/L Urine Color YELLOW (YELLOW) Urine Appearance CLEAR (CLEAR) Urine pH 8.0 (5-6) Ur Specific [place] 1.006 (1.005-1.025) Urine Protein NEGATIVE (Negative) Urine Ketones TRACE (NEGATIVE) Urine Blood NEGATIVE (0-5) Rizwan/ul Urine Nitrite NEGATIVE (NEGATIVE) Urine Bilirubin NEGATIVE (NEGATIVE) Urine Urobilinogen NEGATIVE (0-1) mg/dL Ur Leukocyte Esterase NEGATIVE (NEGATIVE) Urine WBC (Auto) 3-5 (0-5) /HPF Urine RBC (Auto) NONE (0-2) /HPF U Hyaline Cast (Auto) (0-2) /LPF U Epithel Cells (Auto) NONE (FEW) /HPF Urine Bacteria (Auto) NONE (NEGATIVE) /HPF Unidentified Crystals (NEGATIVE) /HPF Other Casts (Auto) (NEGATIVE) /LPF Urine Mucus (Auto) SLIGHT (NEGATIVE) /HPF Urine Culture Reflexed NO (NO) Urine Glucose NEGATIVE (NEGATIVE) mg/dL Stl C. cayetanensis PCR (NEGATIVE) Stl Adenov F 40/41 PCR (NEGATIVE) Stool Astrovirus (PCR) (NEGATIVE) Stool Cryptosporidium PCR (NEGATIVE) Stool EPEC (PCR) (NEGATIVE) Stool EAEC (PCR) (NEGATIVE) Stl E. histolytica PCR (NEGATIVE) Stl P. shigelloides PCR (NEGATIVE) Stool Sapovirus (PCR) (NEGATIVE) St Y.enterocolitica PCR (NEGATIVE) Stool Vibrio (PCR) (NEGATIVE) Stl Vibrio cholerae PCR (NEGATIVE) Stl Norovirus GI/GII PCR (NEGATIVE) Campylobacter (PCR) (NEGATIVE) C. difficile (PCR) (NEGATIVE) COVID-19 (VERONICA) (Not Detected) Enterotoxigenic E. coli (NEGATIVE) E.coli Shiga Toxins (NEGATIVE) Giardia lamblia (NEGATIVE) Monoscreen (Negative) Influenza Type A Ag (NEGATIVE) Influenza Type B Ag (NEGATIVE) RSV (PCR) (Negative) Rotavirus A (PCR) (NEGATIVE) Salmonella (PCR) (NEGATIVE) Shigella (PCR) (NEGATIVE) Group A Strep Antibody (NEGATIVE) 02/24/20 02/23/20 02/23/20 Range/Units 05:05 05:10 05:10 WBC 4.8 (4.0-10.5) K/mm3 RBC 3.06 L (4.1-5.4) M/mm3 Hgb 10.1 L (12.0-16.0) gm/dl Hct 30.4 L (35-47) % MCV 99.3 (78-100) fl MCH 33.0 H (26-32) pg MCHC 33.2 (32-36) g/dl RDW 12.8 (11.5-14.0) % Plt Count 222 (150-450) K/mm3 MPV 8.3 (7.5-11.0) fl Segmented Neutrophils (36.0-66.0) % Band Neutrophils (0.0-2.0) % Lymphocytes (Manual) (24-44) % Monocytes (Manual) (0.0-12.0) % Platelet Estimate (NORMAL) RBC Morphology D-Dimer 1000 H* (215-500) ng/mL Sodium 133 L (137-145) mmol/L Potassium 3.5 (3.5-5.1) mmol/L Chloride 99 (98-107) mmol/L Carbon Dioxide 25 (22-30) mmol/L Anion Gap 11.8 (5-15) MEQ/L BUN 9 (7-17) mg/dL Creatinine 0.62 (0.52-1.04) mg/dL Estimated GFR > 60.0 ML/MIN Glucose 86 (74-106) mg/dL Lactic Acid (0.4-2.0) Calcium 7.5 L (8.4-10.2) mg/dL Magnesium (1.6-2.3) mg/dL Ferritin (11.1-264) ng/mL Total Bilirubin 0.60 (0.2-1.3) mg/dL AST 35 (14-36) U/L ALT 16 (0-35) U/L Alkaline Phosphatase 51 (38-126) U/L Lactate Dehydrogenase (120-246) U/L Serum Total Protein 5.4 L (6.3-8.2) g/dL Albumin 2.9 L (3.5-5.0) g/dL Amylase (30-110) U/L Lipase (23-300) U/L Urine Color (YELLOW) Urine Appearance (CLEAR) Urine pH (5-6) Ur Specific [place] (1.005-1.025) Urine Protein (Negative) Urine Ketones (NEGATIVE) Urine Blood (0-5) Rizwan/ul Urine Nitrite (NEGATIVE) Urine Bilirubin (NEGATIVE) Urine Urobilinogen (0-1) mg/dL Ur Leukocyte Esterase (NEGATIVE) Urine WBC (Auto) (0-5) /HPF Urine RBC (Auto) (0-2) /HPF U Hyaline Cast (Auto) (0-2) /LPF U Epithel Cells (Auto) (FEW) /HPF Urine Bacteria (Auto) (NEGATIVE) /HPF Unidentified Crystals (NEGATIVE) /HPF Other Casts (Auto) (NEGATIVE) /LPF Urine Mucus (Auto) (NEGATIVE) /HPF Urine Culture Reflexed (NO) Urine Glucose (NEGATIVE) mg/dL Stl C. cayetanensis PCR (NEGATIVE) Stl Adenov F 40/41 PCR (NEGATIVE) Stool Astrovirus (PCR) (NEGATIVE) Stool Cryptosporidium PCR (NEGATIVE) Stool EPEC (PCR) (NEGATIVE) Stool EAEC (PCR) (NEGATIVE) Stl E. histolytica PCR (NEGATIVE) Stl P. shigelloides PCR (NEGATIVE) Stool Sapovirus (PCR) (NEGATIVE) St Y.enterocolitica PCR (NEGATIVE) Stool Vibrio (PCR) (NEGATIVE) Stl Vibrio cholerae PCR (NEGATIVE) Stl Norovirus GI/GII PCR (NEGATIVE) Campylobacter (PCR) (NEGATIVE) C. difficile (PCR) (NEGATIVE) COVID-19 (VERONICA) (Not Detected) Enterotoxigenic E. coli (NEGATIVE) E.coli Shiga Toxins (NEGATIVE) Giardia lamblia (NEGATIVE) Monoscreen (Negative) Influenza Type A Ag (NEGATIVE) Influenza Type B Ag (NEGATIVE) RSV (PCR) (Negative) Rotavirus A (PCR) (NEGATIVE) Salmonella (PCR) (NEGATIVE) Shigella (PCR) (NEGATIVE) Group A Strep Antibody (NEGATIVE) 02/23/20 02/22/20 02/22/20 Range/Units 05:10 05:00 04:50 WBC 5.0 (4.0-10.5) K/mm3 RBC 3.08 L (4.1-5.4) M/mm3 Hgb 10.3 L (12.0-16.0) gm/dl Hct 30.6 L (35-47) % MCV 99.4 (78-100) fl MCH 33.4 H (26-32) pg MCHC 33.7 (32-36) g/dl RDW 12.9 (11.5-14.0) % Plt Count 216 (150-450) K/mm3 MPV 8.2 (7.5-11.0) fl Segmented Neutrophils (36.0-66.0) % Band Neutrophils (0.0-2.0) % Lymphocytes (Manual) (24-44) % Monocytes (Manual) (0.0-12.0) % Platelet Estimate (NORMAL) RBC Morphology D-Dimer 468 (215-500) ng/mL Sodium 134 L (137-145) mmol/L Potassium 3.3 L D (3.5-5.1) mmol/L Chloride 100 (98-107) mmol/L Carbon Dioxide 27 (22-30) mmol/L Anion Gap 11.2 (5-15) MEQ/L BUN 7 (7-17) mg/dL Creatinine 0.66 (0.52-1.04) mg/dL Estimated GFR > 60.0 ML/MIN Glucose 92 (74-106) mg/dL Lactic Acid (0.4-2.0) Calcium 7.7 L (8.4-10.2) mg/dL Magnesium (1.6-2.3) mg/dL Ferritin (11.1-264) ng/mL Total Bilirubin 0.40 (0.2-1.3) mg/dL AST 31 (14-36) U/L ALT 17 (0-35) U/L Alkaline Phosphatase 56 (38-126) U/L Lactate Dehydrogenase (120-246) U/L Serum Total Protein 5.5 L (6.3-8.2) g/dL Albumin 2.8 L (3.5-5.0) g/dL Amylase (30-110) U/L Lipase (23-300) U/L Urine Color (YELLOW) Urine Appearance (CLEAR) Urine pH (5-6) Ur Specific [place] (1.005-1.025) Urine Protein (Negative) Urine Ketones (NEGATIVE) Urine Blood (0-5) Rizwan/ul Urine Nitrite (NEGATIVE) Urine Bilirubin (NEGATIVE) Urine Urobilinogen (0-1) mg/dL Ur Leukocyte Esterase (NEGATIVE) Urine WBC (Auto) (0-5) /HPF Urine RBC (Auto) (0-2) /HPF U Hyaline Cast (Auto) (0-2) /LPF U Epithel Cells (Auto) (FEW) /HPF Urine Bacteria (Auto) (NEGATIVE) /HPF Unidentified Crystals (NEGATIVE) /HPF Other Casts (Auto) (NEGATIVE) /LPF Urine Mucus (Auto) (NEGATIVE) /HPF Urine Culture Reflexed (NO) Urine Glucose (NEGATIVE) mg/dL Stl C. cayetanensis PCR (NEGATIVE) Stl Adenov F 40/41 PCR (NEGATIVE) Stool Astrovirus (PCR) (NEGATIVE) Stool Cryptosporidium PCR (NEGATIVE) Stool EPEC (PCR) (NEGATIVE) Stool EAEC (PCR) (NEGATIVE) Stl E. histolytica PCR (NEGATIVE) Stl P. shigelloides PCR (NEGATIVE) Stool Sapovirus (PCR) (NEGATIVE) St Y.enterocolitica PCR (NEGATIVE) Stool Vibrio (PCR) (NEGATIVE) Stl Vibrio cholerae PCR (NEGATIVE) Stl Norovirus GI/GII PCR (NEGATIVE) Campylobacter (PCR) (NEGATIVE) C. difficile (PCR) (NEGATIVE) COVID-19 (VERONICA) (Not Detected) Enterotoxigenic E. coli (NEGATIVE) E.coli Shiga Toxins (NEGATIVE) Giardia lamblia (NEGATIVE) Monoscreen (Negative) Influenza Type A Ag (NEGATIVE) Influenza Type B Ag (NEGATIVE) RSV (PCR) (Negative) Rotavirus A (PCR) (NEGATIVE) Salmonella (PCR) (NEGATIVE) Shigella (PCR) (NEGATIVE) Group A Strep Antibody (NEGATIVE) 02/22/20 02/21/20 02/20/20 Range/Units 04:50 10:00 21:49 WBC 5.8 5.1 (4.0-10.5) K/mm3 RBC 3.05 L 3.14 L (4.1-5.4) M/mm3 Hgb 10.2 L 10.5 L (12.0-16.0) gm/dl Hct 30.6 L 31.6 L (35-47) % MCV 100.3 H 100.6 H (78-100) fl MCH 33.4 H 33.4 H (26-32) pg MCHC 33.3 33.2 (32-36) g/dl RDW 12.6 12.6 (11.5-14.0) % Plt Count 203 181 (150-450) K/mm3 MPV 8.3 8.2 (7.5-11.0) fl Segmented Neutrophils (36.0-66.0) % Band Neutrophils (0.0-2.0) % Lymphocytes (Manual) (24-44) % Monocytes (Manual) (0.0-12.0) % Platelet Estimate (NORMAL) RBC Morphology D-Dimer (215-500) ng/mL Sodium (137-145) mmol/L Potassium (3.5-5.1) mmol/L Chloride (98-107) mmol/L Carbon Dioxide (22-30) mmol/L Anion Gap (5-15) MEQ/L BUN (7-17) mg/dL Creatinine (0.52-1.04) mg/dL Estimated GFR ML/MIN Glucose (74-106) mg/dL Lactic Acid (0.4-2.0) Calcium (8.4-10.2) mg/dL Magnesium (1.6-2.3) mg/dL Ferritin (11.1-264) ng/mL Total Bilirubin (0.2-1.3) mg/dL AST (14-36) U/L ALT (0-35) U/L Alkaline Phosphatase (38-126) U/L Lactate Dehydrogenase (120-246) U/L Serum Total Protein (6.3-8.2) g/dL Albumin (3.5-5.0) g/dL Amylase (30-110) U/L Lipase (23-300) U/L Urine Color (YELLOW) Urine Appearance (CLEAR) Urine pH (5-6) Ur Specific [place] (1.005-1.025) Urine Protein (Negative) Urine Ketones (NEGATIVE) Urine Blood (0-5) Rizwan/ul Urine Nitrite (NEGATIVE) Urine Bilirubin (NEGATIVE) Urine Urobilinogen (0-1) mg/dL Ur Leukocyte Esterase (NEGATIVE) Urine WBC (Auto) (0-5) /HPF Urine RBC (Auto) (0-2) /HPF U Hyaline Cast (Auto) (0-2) /LPF U Epithel Cells (Auto) (FEW) /HPF Urine Bacteria (Auto) (NEGATIVE) /HPF Unidentified Crystals (NEGATIVE) /HPF Other Casts (Auto) (NEGATIVE) /LPF Urine Mucus (Auto) (NEGATIVE) /HPF Urine Culture Reflexed (NO) Urine Glucose (NEGATIVE) mg/dL Stl C. cayetanensis PCR NEGATIVE (NEGATIVE) Stl Adenov F 40/41 PCR NEGATIVE (NEGATIVE) Stool Astrovirus (PCR) NEGATIVE (NEGATIVE) Stool Cryptosporidium PCR NEGATIVE (NEGATIVE) Stool EPEC (PCR) NEGATIVE (NEGATIVE) Stool EAEC (PCR) NEGATIVE (NEGATIVE) Stl E. histolytica PCR NEGATIVE (NEGATIVE) Stl P. shigelloides PCR NEGATIVE (NEGATIVE) Stool Sapovirus (PCR) NEGATIVE (NEGATIVE) St Y.enterocolitica PCR NEGATIVE (NEGATIVE) Stool Vibrio (PCR) NEGATIVE (NEGATIVE) Stl Vibrio cholerae PCR NEGATIVE (NEGATIVE) Stl Norovirus GI/GII PCR NEGATIVE (NEGATIVE) Campylobacter (PCR) NEGATIVE (NEGATIVE) C. difficile (PCR) NEGATIVE (NEGATIVE) COVID-19 (VERONICA) (Not Detected) Enterotoxigenic E. coli NEGATIVE (NEGATIVE) E.coli Shiga Toxins NEGATIVE (NEGATIVE) Giardia lamblia NEGATIVE (NEGATIVE) Monoscreen (Negative) Influenza Type A Ag (NEGATIVE) Influenza Type B Ag (NEGATIVE) RSV (PCR) (Negative) Rotavirus A (PCR) NEGATIVE (NEGATIVE) Salmonella (PCR) NEGATIVE (NEGATIVE) Shigella (PCR) NEGATIVE (NEGATIVE) Group A Strep Antibody (NEGATIVE) 02/20/20 02/20/20 02/20/20 Range/Units 20:00 11:26 10:40 WBC (4.0-10.5) K/mm3 RBC (4.1-5.4) M/mm3 Hgb (12.0-16.0) gm/dl Hct (35-47) % MCV (78-100) fl MCH (26-32) pg MCHC (32-36) g/dl RDW (11.5-14.0) % Plt Count (150-450) K/mm3 MPV (7.5-11.0) fl Segmented Neutrophils (36.0-66.0) % Band Neutrophils (0.0-2.0) % Lymphocytes (Manual) (24-44) % Monocytes (Manual) (0.0-12.0) % Platelet Estimate (NORMAL) RBC Morphology D-Dimer (215-500) ng/mL Sodium (137-145) mmol/L Potassium 4.2 D 2.9 L* (3.5-5.1) mmol/L Chloride (98-107) mmol/L Carbon Dioxide (22-30) mmol/L Anion Gap (5-15) MEQ/L BUN (7-17) mg/dL Creatinine (0.52-1.04) mg/dL Estimated GFR ML/MIN Glucose (74-106) mg/dL Lactic Acid (0.4-2.0) Calcium (8.4-10.2) mg/dL Magnesium 1.7 (1.6-2.3) mg/dL Ferritin (11.1-264) ng/mL Total Bilirubin (0.2-1.3) mg/dL AST (14-36) U/L ALT (0-35) U/L Alkaline Phosphatase (38-126) U/L Lactate Dehydrogenase (120-246) U/L Serum Total Protein (6.3-8.2) g/dL Albumin (3.5-5.0) g/dL Amylase (30-110) U/L Lipase (23-300) U/L Urine Color (YELLOW) Urine Appearance (CLEAR) Urine pH (5-6) Ur Specific [place] (1.005-1.025) Urine Protein (Negative) Urine Ketones (NEGATIVE) Urine Blood (0-5) Rizwan/ul Urine Nitrite (NEGATIVE) Urine Bilirubin (NEGATIVE) Urine Urobilinogen (0-1) mg/dL Ur Leukocyte Esterase (NEGATIVE) Urine WBC (Auto) (0-5) /HPF Urine RBC (Auto) (0-2) /HPF U Hyaline Cast (Auto) (0-2) /LPF U Epithel Cells (Auto) (FEW) /HPF Urine Bacteria (Auto) (NEGATIVE) /HPF Unidentified Crystals (NEGATIVE) /HPF Other Casts (Auto) (NEGATIVE) /LPF Urine Mucus (Auto) (NEGATIVE) /HPF Urine Culture Reflexed (NO) Urine Glucose (NEGATIVE) mg/dL Stl C. cayetanensis PCR (NEGATIVE) Stl Adenov F 40/41 PCR (NEGATIVE) Stool Astrovirus (PCR) (NEGATIVE) Stool Cryptosporidium PCR (NEGATIVE) Stool EPEC (PCR) (NEGATIVE) Stool EAEC (PCR) (NEGATIVE) Stl E. histolytica PCR (NEGATIVE) Stl P. shigelloides PCR (NEGATIVE) Stool Sapovirus (PCR) (NEGATIVE) St Y.enterocolitica PCR (NEGATIVE) Stool Vibrio (PCR) (NEGATIVE) Stl Vibrio cholerae PCR (NEGATIVE) Stl Norovirus GI/GII PCR (NEGATIVE) Campylobacter (PCR) (NEGATIVE) C. difficile (PCR) (NEGATIVE) COVID-19 (VERONICA) (Not Detected) Enterotoxigenic E. coli (NEGATIVE) E.coli Shiga Toxins (NEGATIVE) Giardia lamblia (NEGATIVE) Monoscreen (Negative) Influenza Type A Ag (NEGATIVE) Influenza Type B Ag (NEGATIVE) RSV (PCR) (Negative) Rotavirus A (PCR) (NEGATIVE) Salmonella (PCR) (NEGATIVE) Shigella (PCR) (NEGATIVE) Group A Strep Antibody (NEGATIVE) 02/20/20 02/20/20 02/19/20 Range/Units 05:00 05:00 Unknown WBC 4.8 (4.0-10.5) K/mm3 RBC 3.32 L (4.1-5.4) M/mm3 Hgb 11.0 L (12.0-16.0) gm/dl Hct 33.0 L (35-47) % MCV 99.4 (78-100) fl MCH 33.1 H (26-32) pg MCHC 33.3 (32-36) g/dl RDW 12.7 (11.5-14.0) % Plt Count 176 (150-450) K/mm3 MPV 8.2 (7.5-11.0) fl Segmented Neutrophils 93 H (36.0-66.0) % Band Neutrophils 4 H (0.0-2.0) % Lymphocytes (Manual) 3 L (24-44) % Monocytes (Manual) (0.0-12.0) % Platelet Estimate NORMAL (NORMAL) RBC Morphology NORMAL D-Dimer (215-500) ng/mL Sodium 136 L (137-145) mmol/L Potassium 2.9 L* (3.5-5.1) mmol/L Chloride 95 L (98-107) mmol/L Carbon Dioxide 28 (22-30) mmol/L Anion Gap 16.4 H (5-15) MEQ/L BUN 16 (7-17) mg/dL Creatinine 0.81 (0.52-1.04) mg/dL Estimated GFR > 60.0 ML/MIN Glucose 91 (74-106) mg/dL Lactic Acid (0.4-2.0) Calcium 7.5 L (8.4-10.2) mg/dL Magnesium (1.6-2.3) mg/dL Ferritin 207 (11.1-264) ng/mL Total Bilirubin 0.40 (0.2-1.3) mg/dL AST 38 H (14-36) U/L ALT 16 (0-35) U/L Alkaline Phosphatase 64 (38-126) U/L Lactate Dehydrogenase (120-246) U/L Serum Total Protein 5.5 L (6.3-8.2) g/dL Albumin 3.0 L (3.5-5.0) g/dL Amylase (30-110) U/L Lipase (23-300) U/L Urine Color (YELLOW) Urine Appearance (CLEAR) Urine pH (5-6) Ur Specific [place] (1.005-1.025) Urine Protein (Negative) Urine Ketones (NEGATIVE) Urine Blood (0-5) Rizwan/ul Urine Nitrite (NEGATIVE) Urine Bilirubin (NEGATIVE) Urine Urobilinogen (0-1) mg/dL Ur Leukocyte Esterase (NEGATIVE) Urine WBC (Auto) (0-5) /HPF Urine RBC (Auto) (0-2) /HPF U Hyaline Cast (Auto) (0-2) /LPF U Epithel Cells (Auto) (FEW) /HPF Urine Bacteria (Auto) (NEGATIVE) /HPF Unidentified Crystals (NEGATIVE) /HPF Other Casts (Auto) (NEGATIVE) /LPF Urine Mucus (Auto) (NEGATIVE) /HPF Urine Culture Reflexed (NO) Urine Glucose (NEGATIVE) mg/dL Stl C. cayetanensis PCR (NEGATIVE) Stl Adenov F 40/41 PCR (NEGATIVE) Stool Astrovirus (PCR) (NEGATIVE) Stool Cryptosporidium PCR (NEGATIVE) Stool EPEC (PCR) (NEGATIVE) Stool EAEC (PCR) (NEGATIVE) Stl E. histolytica PCR (NEGATIVE) Stl P. shigelloides PCR (NEGATIVE) Stool Sapovirus (PCR) (NEGATIVE) St Y.enterocolitica PCR (NEGATIVE) Stool Vibrio (PCR) (NEGATIVE) Stl Vibrio cholerae PCR (NEGATIVE) Stl Norovirus GI/GII PCR (NEGATIVE) Campylobacter (PCR) (NEGATIVE) C. difficile (PCR) (NEGATIVE) COVID-19 (VERONICA) (Not Detected) Enterotoxigenic E. coli (NEGATIVE) E.coli Shiga Toxins (NEGATIVE) Giardia lamblia (NEGATIVE) Monoscreen (Negative) Influenza Type A Ag (NEGATIVE) Influenza Type B Ag (NEGATIVE) RSV (PCR) (Negative) Rotavirus A (PCR) (NEGATIVE) Salmonella (PCR) (NEGATIVE) Shigella (PCR) (NEGATIVE) Group A Strep Antibody (NEGATIVE) 02/19/20 02/19/20 02/19/20 Range/Units 21:31 13:21 12:46 WBC (4.0-10.5) K/mm3 RBC (4.1-5.4) M/mm3 Hgb (12.0-16.0) gm/dl Hct (35-47) % MCV (78-100) fl MCH (26-32) pg MCHC (32-36) g/dl RDW (11.5-14.0) % Plt Count (150-450) K/mm3 MPV (7.5-11.0) fl Segmented Neutrophils (36.0-66.0) % Band Neutrophils (0.0-2.0) % Lymphocytes (Manual) (24-44) % Monocytes (Manual) (0.0-12.0) % Platelet Estimate (NORMAL) RBC Morphology D-Dimer (215-500) ng/mL Sodium (137-145) mmol/L Potassium 2.8 L* (3.5-5.1) mmol/L Chloride (98-107) mmol/L Carbon Dioxide (22-30) mmol/L Anion Gap (5-15) MEQ/L BUN (7-17) mg/dL Creatinine (0.52-1.04) mg/dL Estimated GFR ML/MIN Glucose (74-106) mg/dL Lactic Acid (0.4-2.0) Calcium (8.4-10.2) mg/dL Magnesium (1.6-2.3) mg/dL Ferritin (11.1-264) ng/mL Total Bilirubin (0.2-1.3) mg/dL AST (14-36) U/L ALT (0-35) U/L Alkaline Phosphatase (38-126) U/L Lactate Dehydrogenase 366 H (120-246) U/L Serum Total Protein (6.3-8.2) g/dL Albumin (3.5-5.0) g/dL Amylase (30-110) U/L Lipase (23-300) U/L Urine Color YELLOW (YELLOW) Urine Appearance SLIGHTLY CLOUDY (CLEAR) Urine pH 7.0 (5-6) Ur Specific [place] 1.017 (1.005-1.025) Urine Protein NEGATIVE (Negative) Urine Ketones TRACE (NEGATIVE) Urine Blood NEGATIVE (0-5) Rizwan/ul Urine Nitrite NEGATIVE (NEGATIVE) Urine Bilirubin NEGATIVE (NEGATIVE) Urine Urobilinogen NEGATIVE (0-1) mg/dL Ur Leukocyte Esterase NEGATIVE (NEGATIVE) Urine WBC (Auto) 0-2 (0-5) /HPF Urine RBC (Auto) 0-2 (0-2) /HPF U Hyaline Cast (Auto) 6-10 (0-2) /LPF U Epithel Cells (Auto) RARE (FEW) /HPF Urine Bacteria (Auto) NONE SEEN (NEGATIVE) /HPF Unidentified Crystals 2-5 (NEGATIVE) /HPF Other Casts (Auto) 2-5 (NEGATIVE) /LPF Urine Mucus (Auto) SLIGHT (NEGATIVE) /HPF Urine Culture Reflexed NO (NO) Urine Glucose NEGATIVE (NEGATIVE) mg/dL Stl C. cayetanensis PCR (NEGATIVE) Stl Adenov F 40/41 PCR (NEGATIVE) Stool Astrovirus (PCR) (NEGATIVE) Stool Cryptosporidium PCR (NEGATIVE) Stool EPEC (PCR) (NEGATIVE) Stool EAEC (PCR) (NEGATIVE) Stl E. histolytica PCR (NEGATIVE) Stl P. shigelloides PCR (NEGATIVE) Stool Sapovirus (PCR) (NEGATIVE) St Y.enterocolitica PCR (NEGATIVE) Stool Vibrio (PCR) (NEGATIVE) Stl Vibrio cholerae PCR (NEGATIVE) Stl Norovirus GI/GII PCR (NEGATIVE) Campylobacter (PCR) (NEGATIVE) C. difficile (PCR) (NEGATIVE) COVID-19 (VERONICA) (Not Detected) Enterotoxigenic E. coli (NEGATIVE) E.coli Shiga Toxins (NEGATIVE) Giardia lamblia (NEGATIVE) Monoscreen (Negative) Influenza Type A Ag (NEGATIVE) Influenza Type B Ag (NEGATIVE) RSV (PCR) (Negative) Rotavirus A (PCR) (NEGATIVE) Salmonella (PCR) (NEGATIVE) Shigella (PCR) (NEGATIVE) Group A Strep Antibody (NEGATIVE) 02/19/20 02/19/20 02/19/20 Range/Units 12:15 12:03 12:00 WBC (4.0-10.5) K/mm3 RBC (4.1-5.4) M/mm3 Hgb (12.0-16.0) gm/dl Hct (35-47) % MCV (78-100) fl MCH (26-32) pg MCHC (32-36) g/dl RDW (11.5-14.0) % Plt Count (150-450) K/mm3 MPV (7.5-11.0) fl Segmented Neutrophils (36.0-66.0) % Band Neutrophils (0.0-2.0) % Lymphocytes (Manual) (24-44) % Monocytes (Manual) (0.0-12.0) % Platelet Estimate (NORMAL) RBC Morphology D-Dimer (215-500) ng/mL Sodium (137-145) mmol/L Potassium (3.5-5.1) mmol/L Chloride (98-107) mmol/L Carbon Dioxide (22-30) mmol/L Anion Gap (5-15) MEQ/L BUN (7-17) mg/dL Creatinine (0.52-1.04) mg/dL Estimated GFR ML/MIN Glucose (74-106) mg/dL Lactic Acid (0.4-2.0) Calcium (8.4-10.2) mg/dL Magnesium (1.6-2.3) mg/dL Ferritin (11.1-264) ng/mL Total Bilirubin (0.2-1.3) mg/dL AST (14-36) U/L ALT (0-35) U/L Alkaline Phosphatase (38-126) U/L Lactate Dehydrogenase (120-246) U/L Serum Total Protein (6.3-8.2) g/dL Albumin (3.5-5.0) g/dL Amylase (30-110) U/L Lipase (23-300) U/L Urine Color (YELLOW) Urine Appearance (CLEAR) Urine pH (5-6) Ur Specific [place] (1.005-1.025) Urine Protein (Negative) Urine Ketones (NEGATIVE) Urine Blood (0-5) Rizwan/ul Urine Nitrite (NEGATIVE) Urine Bilirubin (NEGATIVE) Urine Urobilinogen (0-1) mg/dL Ur Leukocyte Esterase (NEGATIVE) Urine WBC (Auto) (0-5) /HPF Urine RBC (Auto) (0-2) /HPF U Hyaline Cast (Auto) (0-2) /LPF U Epithel Cells (Auto) (FEW) /HPF Urine Bacteria (Auto) (NEGATIVE) /HPF Unidentified Crystals (NEGATIVE) /HPF Other Casts (Auto) (NEGATIVE) /LPF Urine Mucus (Auto) (NEGATIVE) /HPF Urine Culture Reflexed (NO) Urine Glucose (NEGATIVE) mg/dL Stl C. cayetanensis PCR (NEGATIVE) Stl Adenov F 40/41 PCR (NEGATIVE) Stool Astrovirus (PCR) (NEGATIVE) Stool Cryptosporidium PCR (NEGATIVE) Stool EPEC (PCR) (NEGATIVE) Stool EAEC (PCR) (NEGATIVE) Stl E. histolytica PCR (NEGATIVE) Stl P. shigelloides PCR (NEGATIVE) Stool Sapovirus (PCR) (NEGATIVE) St Y.enterocolitica PCR (NEGATIVE) Stool Vibrio (PCR) (NEGATIVE) Stl Vibrio cholerae PCR (NEGATIVE) Stl Norovirus GI/GII PCR (NEGATIVE) Campylobacter (PCR) (NEGATIVE) C. difficile (PCR) (NEGATIVE) COVID-19 (VERONICA) Detected H (Not Detected) Enterotoxigenic E. coli (NEGATIVE) E.coli Shiga Toxins (NEGATIVE) Giardia lamblia (NEGATIVE) Monoscreen NEGATIVE (Negative) Influenza Type A Ag NEGATIVE (NEGATIVE) Influenza Type B Ag NEGATIVE (NEGATIVE) RSV (PCR) NEGATIVE (Negative) Rotavirus A (PCR) (NEGATIVE) Salmonella (PCR) (NEGATIVE) Shigella (PCR) (NEGATIVE) Group A Strep Antibody NEGATIVE (NEGATIVE) 02/19/20 02/19/20 02/19/20 Range/Units 12:00 12:00 11:50 WBC 4.7 (4.0-10.5) K/mm3 RBC 3.89 L (4.1-5.4) M/mm3 Hgb 13.1 (12.0-16.0) gm/dl Hct 38.0 (35-47) % MCV 97.7 (78-100) fl MCH 33.7 H (26-32) pg MCHC 34.5 (32-36) g/dl RDW 12.6 (11.5-14.0) % Plt Count 194 (150-450) K/mm3 MPV 9.1 (7.5-11.0) fl Segmented Neutrophils 86 H (36.0-66.0) % Band Neutrophils 5 H (0.0-2.0) % Lymphocytes (Manual) 6 L (24-44) % Monocytes (Manual) 3 (0.0-12.0) % Platelet Estimate NORMAL (NORMAL) RBC Morphology NORMAL D-Dimer (215-500) ng/mL Sodium 132 L (137-145) mmol/L Potassium 3.1 L (3.5-5.1) mmol/L Chloride 89 L (98-107) mmol/L Carbon Dioxide 30 (22-30) mmol/L Anion Gap 16.2 H (5-15) MEQ/L BUN 24 H (7-17) mg/dL Creatinine 0.83 (0.52-1.04) mg/dL Estimated GFR > 60.0 ML/MIN Glucose 92 (74-106) mg/dL Lactic Acid 1.9 (0.4-2.0) Calcium 8.4 (8.4-10.2) mg/dL Magnesium (1.6-2.3) mg/dL Ferritin (11.1-264) ng/mL Total Bilirubin 0.70 (0.2-1.3) mg/dL AST 45 H (14-36) U/L ALT 20 (0-35) U/L Alkaline Phosphatase 73 (38-126) U/L Lactate Dehydrogenase (120-246) U/L Serum Total Protein 6.2 L (6.3-8.2) g/dL Albumin 3.6 (3.5-5.0) g/dL Amylase 82 (30-110) U/L Lipase 315 H (23-300) U/L Urine Color (YELLOW) Urine Appearance (CLEAR) Urine pH (5-6) Ur Specific [place] (1.005-1.025) Urine Protein (Negative) Urine Ketones (NEGATIVE) Urine Blood (0-5) Rizwan/ul Urine Nitrite (NEGATIVE) Urine Bilirubin (NEGATIVE) Urine Urobilinogen (0-1) mg/dL Ur Leukocyte Esterase (NEGATIVE) Urine WBC (Auto) (0-5) /HPF Urine RBC (Auto) (0-2) /HPF U Hyaline Cast (Auto) (0-2) /LPF U Epithel Cells (Auto) (FEW) /HPF Urine Bacteria (Auto) (NEGATIVE) /HPF Unidentified Crystals (NEGATIVE) /HPF Other Casts (Auto) (NEGATIVE) /LPF Urine Mucus (Auto) (NEGATIVE) /HPF Urine Culture Reflexed (NO) Urine Glucose (NEGATIVE) mg/dL Stl C. cayetanensis PCR (NEGATIVE) Stl Adenov F 40/41 PCR (NEGATIVE) Stool Astrovirus (PCR) (NEGATIVE) Stool Cryptosporidium PCR (NEGATIVE) Stool EPEC (PCR) (NEGATIVE) Stool EAEC (PCR) (NEGATIVE) Stl E. histolytica PCR (NEGATIVE) Stl P. shigelloides PCR (NEGATIVE) Stool Sapovirus (PCR) (NEGATIVE) St Y.enterocolitica PCR (NEGATIVE) Stool Vibrio (PCR) (NEGATIVE) Stl Vibrio cholerae PCR (NEGATIVE) Stl Norovirus GI/GII PCR (NEGATIVE) Campylobacter (PCR) (NEGATIVE) C. difficile (PCR) (NEGATIVE) COVID-19 ([place]ON[place]) (Not Detected) Enterotoxigenic E. coli (NEGATIVE) E.coli Shiga Toxins (NEGATIVE) Giardia lamblia (NEGATIVE) Monoscreen (Negative) Influenza Type A Ag (NEGATIVE) Influenza Type B Ag (NEGATIVE) RSV (PCR) (Negative) Rotavirus A (PCR) (NEGATIVE) Salmonella (PCR) (NEGATIVE) Shigella (PCR) (NEGATIVE) Group A Strep Antibody (NEGATIVE) Chief Complaint Diagnosis Pneumonia Allergies Allergy/AdvReac Type Severity Reaction Status Date / Time meperidine [From Demerol] AdvReac Intermediate Verified 02/19/20 17:16 Home Medications Medication Instructions Recorded Confirmed Last Taken Type Albuterol Sulfate [Albuterol 2 puff IH Q6HPRN PRN 02/19/20 02/19/20 Unknown History Sulfate Hfa] Aspirin EC 81 mg [Ecotrin 81 81 mg PO QHS 02/19/20 02/19/20 Unknown History mg] Atorvastatin Calcium [Lipitor] 10 mg PO DAILY 02/19/20 02/19/20 Unknown History Cyanocobalamin (Vitamin B-12) 1,000 mcg SL DAILY 02/19/20 02/19/20 Unknown History [Vitamin B-12] Fluticasone Propionate [Flonase 1 spray NS DAILY 02/19/20 02/19/20 Unknown History Allergy Relief] Levothyroxine Sodium 100 mcg PO DAILY 02/19/20 02/19/20 Unknown History Meclizine HCl 12.5 mg PO TIDPRN 02/19/20 02/19/20 Unknown History Multivitamin [Multivitamins] 1 each PO DAILY 02/19/20 02/19/20 Unknown History Omeprazole 20 mg PO DAILY 02/19/20 02/19/20 Unknown History Potassium Chloride 8 meq PO BID 02/19/20 02/19/20 Unknown History Sertraline HCl 100 mg PO BID 02/19/20 02/19/20 Unknown History buPROPion HCl [Bupropion HCl Sr] 150 mg PO BID 02/19/20 02/19/20 Unknown History Current Medications Discontinued Medications Generic Name Dose Route Start Last Admin Trade Name Freq PRN Reason Stop Dose Admin Acetaminophen 650 mg 02/19/20 15:22 02/25/20 23:25 Tylenol 325 Mg PO 03/20/20 15:21 650 mg Q4H PRN PRN Administration PAIN, FEVER, HEADACHE Albuterol Sulfate 2 puff 02/20/20 06:59 Ventolin Common Canister IH 03/21/20 06:58 Q6H PRN PRN SHORTNESS OF BREATH Aspirin 81 mg 02/19/20 22:00 02/25/20 21:45 Ecotrin 81 Mg PO 03/20/20 21:59 81 mg HS DAVID Administration Bupropion HCl 150 mg 02/19/20 22:00 02/26/20 10:06 Wellbutrin Sr 150 Mg PO 03/20/20 21:59 150 mg BID DAVID Administration Cyanocobalamin 1,000 mcg 02/20/20 10:00 02/26/20 10:06 Vitamin B-12 500 Mcg PO 03/21/20 09:59 1,000 mcg DAILY DAVID Administration Diphenoxylate HCl/Atropine 1 tablet 02/21/20 09:41 02/23/20 14:08 Lomotil PO 03/22/20 09:40 1 tablet Q4H PRN PRN Administration Enoxaparin Sodium 40 mg 02/19/20 22:00 02/26/20 10:07 Enoxaparin Sodium SQ 03/20/20 21:59 40 mg DAILY DAVID Administration Fluticasone Propionate 0 gm 02/20/20 10:00 02/26/20 10:07 Flonase Nasal NS 03/21/20 09:59 1 gm DAILY DAVID Administration Sodium Chloride 1,000 mls @ 100 mls/hr 02/19/20 12:00 02/19/20 12:08 Sodium Chloride 0.9% 1000 Ml IV 03/20/20 11:59 100 mls/hr .Q10H DAVID Administration Ceftriaxone Sodium/Dextrose 1 g in 50 mls @ 100 mls/hr 02/19/20 13:16 14:56 Rocephin 1 Gm-D5w 50 Ml Bag IV 02/19/20 13:45 100 mls/hr STAT STA 100 mls/hr Administration Ceftriaxone Sodium/Dextrose Confirm 02/19/20 14:52 Rocephin 1 Gm-D5w 50 Ml Bag Administered 02/19/20 14:53 Dose 1 g in 50 mls @ ud IV .STK-MED ONE Sodium Chloride Confirm 02/19/20 12:05 Sodium Chloride 0.9% 1000 Ml Administered 02/19/20 12:06 Dose 1,000 mls @ ud .ROUTE .STK-MED ONE Azithromycin 500 mg in 250 mls @ 250 mls/hr 02/19/20 22:00 02/19/20 21:39 Zithromax 500 Mg/ 250 Ml Nacl Premix IV 03/20/20 21:59 250 mls/hr Q24H22 DAVID Administration Ceftriaxone Sodium/Dextrose 1 g in 50 mls @ 100 mls/hr 02/20/20 10:00 10:42 Rocephin 1 Gm-D5w 50 Ml Bag IV 03/21/20 09:59 100 mls/hr Q24H10 DAVID Administration Potassium Chloride 20 meq in 100 mls @ 50 mls/hr 02/19/20 15:22 02/19/20 16: 22 Potassium Chloride 20 Meq In Water 100ml IV 02/19/20 17:21 50 mls/hr STAT ONE Administration Sodium Chloride 1,000 mls @ 50 mls/hr 02/19/20 15:22 02/23/20 21:40 Sodium Chloride 0.9% 1000 Ml IV 03/20/20 15:21 50 mls/hr .Q20H DAVID Administration Potassium Chloride 20 meq in 100 mls @ 50 mls/hr 02/19/20 21:54 02/20/20 06: 02 Potassium Chloride 20 Meq In Water 100ml IV 02/19/20 23:53 50 mls/hr STAT ONE Administration Potassium Chloride 20 meq in 100 mls @ 50 mls/hr 02/20/20 05:57 02/20/20 07: 58 Potassium Chloride 20 Meq In Water 100ml IV 02/20/20 07:56 Not Given STAT ONE Potassium Chloride 40 meq/ 274 mls @ 68 mls/hr 02/20/20 12:00 02/20/20 12:53 Lidocaine HCl 4 ml/ Sodium IV 02/20/20 16:01 68 mls/hr Chloride 1XONLY ONE Administration Remdesivir 200 mg/ Sodium 250 mls @ 250 mls/hr 02/22/20 10:30 02/22/20 10:30 Chloride IV 02/22/20 11:29 250 mls/hr ONCE ONE Administration Remdesivir 100 mg/ Sodium 100 mls @ 100 mls/hr 02/23/20 10:00 02/26/20 10:06 Chloride IV 02/26/20 10:59 100 mls/hr Q24H DAVID Administration Potassium Chloride 20 meq in 100 mls @ 50 mls/hr 02/24/20 07:30 02/24/20 09: 50 Potassium Chloride 20 Meq In Water 100ml IV 02/24/20 11:29 50 mls/hr Q2H DAVID Administration Potassium Chloride 20 meq in 100 mls @ 50 mls/hr 02/24/20 15:00 02/24/20 17: 11 Potassium Chloride 20 Meq In Water 100ml IV 02/24/20 18:59 50 mls/hr Q2H DAVID Administration Potassium Chloride Confirm 02/24/20 14:52 Potassium Chloride 20 Meq In Water 100ml Administered 02/24/20 14:53 Dose 100 mls @ ud IV .STK-MED ONE Sodium Chloride 500 mls @ 50 mls/hr 02/24/20 15:00 02/24/20 17:11 Sodium Chloride 0.9% 500 Ml IV 03/25/20 14:59 50 mls/hr .Q10H DAVID Administration Levothyroxine Sodium 100 mcg 02/20/20 10:00 02/26/20 05:55 Synthroid 100 Mcg PO 03/21/20 09:59 100 mcg DAILY@0600 DAVID Administration Loperamide HCl 2 mg 02/20/20 18:51 02/23/20 20:54 Imodium 2 Mg PO 03/21/20 18:50 2 mg Q4HPRN PRN Administration DIARRHEA Lorazepam 1 mg 02/22/20 10:34 02/23/20 14:08 Ativan 1 Mg PO 03/23/20 10:33 1 mg Q8H PRN PRN Administration ANXIETY Magnesium Oxide 400 mg 02/20/20 11:52 02/24/20 09:20 Mag-Ox 400 PO 03/21/20 11:51 400 mg DAILY DAVID Administration Magnesium Oxide 400 mg 02/24/20 23:10 02/26/20 10:06 Mag-Ox 400 PO 03/25/20 23:08 400 mg BID DAVID Administration Meclizine HCl 12.5 mg 02/19/20 18:08 Antivert 25 Mg PO 03/20/20 21:59 TID PRN DIZZINESS Meclizine HCl 12.5 mg 02/20/20 07:15 02/21/20 22:49 Antivert 25 Mg PO 03/20/20 18:07 12.5 mg TID PRN PRN Administration DIZZINESS Metronidazole 500 mg 02/21/20 10:00 02/21/20 14:53 Flagyl 500 Mg PO 03/22/20 09:59 500 mg TID DAVID Administration Multivitamins Therapeutic 1 tab 02/20/20 10:00 02/26/20 10:07 Theragran Multivitamin PO 03/21/20 09:59 1 tab DAILY DAVID Administration Non-Formulary Medication 1 each 02/20/20 07:45 02/20/20 10:45 Pharmacy Dosing Request 02/20/20 07:46 Not Given NOW ONE Non-Formulary Medication 1 each 02/20/20 11:52 02/22/20 07:20 Pharmacy Dosing Request 02/20/20 11:53 1 each STAT ONE Administration Ondansetron HCl 4 mg 02/19/20 11:50 02/19/20 12:08 Zofran 4 Mg/2 Ml Vial IV 02/19/20 11:51 4 mg STAT ONE Administration Ondansetron HCl Confirm 02/19/20 12:05 Zofran 4 Mg/2 Ml Vial Administered 02/19/20 12:06 Dose 4 mg .ROUTE .STK-MED ONE Ondansetron HCl 4 mg 02/19/20 15:22 02/21/20 05:46 Zofran 4 Mg/2 Ml Vial IV 03/20/20 15:21 4 mg Q6H PRN PRN Administration NAUSEA/VOMITING Ondansetron HCl 4 mg 02/21/20 09:01 02/21/20 20:14 Zofran 4 Mg/2 Ml Vial IV 03/22/20 08:59 4 mg Q4H PRN PRN Administration NAUSEA/VOMITING Pantoprazole Sodium 40 mg 02/20/20 10:00 02/26/20 10:06 Protonix 40mg Tablet PO 03/21/20 09:59 40 mg DAILY DAVID Administration Potassium Chloride 10 meq 02/19/20 22:00 02/24/20 21:44 Klor Con 10 Meq PO 03/20/20 21:59 10 meq BID DAVID Administration Potassium Chloride 10 meq 02/22/20 10:00 02/22/20 10:27 Klor Con 10 Meq PO 02/22/20 10:01 10 meq STAT ONE Administration Potassium Chloride 20 meq 02/25/20 10:00 02/26/20 15:17 Klor Con 10 Meq PO 03/26/20 09:59 Not Given TID DAVID Prednisone 20 mg 02/20/20 10:00 02/21/20 09:07 Deltasone 20 Mg PO 03/21/20 09:59 20 mg DAILY DAVID Administration Sertraline HCl 100 mg 02/19/20 22:00 02/26/20 10:06 Zoloft 50 Mg Tablet PO 03/20/20 21:59 100 mg BID DAVID Administration Simvastatin 10 mg 02/20/20 10:00 02/26/20 10:06 Zocor 10mg PO 03/21/20 09:59 10 mg DAILY DAVID Administration Intake & Output (Last 24 hours) 02/27/20 02/28/20 02/29/20 03/01/20 11:59 11:59 11:59 11:59 Intake Total 340 Balance 340 - Vitals & Intake/Output Vital Signs: Vital Signs Temperature 98.4 F 02/26/20 07:58 Pulse Rate 62 02/26/20 14:00 Respiratory Rate 18 02/26/20 15:00 Blood Pressure 138/67 02/26/20 07:58 O2 Sat by Pulse Oximetry 93 L 02/26/20 14:00 Intake & Output: Intake & Output 02/27/20 02/28/20 02/29/20 03/01/20 11:59 11:59 11:59 11:59 Intake Total 340 Balance 340 - Lab Result Diagrams: 02/26/20 04:40 02/26/20 04:40 - Procedures and Test Procedures and Tests throughout Hospitalization: Therapy Orders & Screens 02/19/20 15:22 Oxygen Nasal Cannula 2 lpm Comment: 02/19/20 17:12 RT Screen per Nursing Assess ONCE Comment: Protocol Order Physician Instructions: Greater than 3 points order RT Admission Screen Reason For Exam: Triggered on Admission Diagnosis: Pneumonia Diagnosis: Pneumonia Pneumonia: Yes Home O2: No Asthma: No CHF: No Home CPAP/BIPAP: Yes: CPAP Home Nebs/MDI: Yes Total Points: 13 Smoking Cessation Education ONCE Comment: Diagnosis: Pneumonia Smoking Status: Current some day smoker Have you smoked in the past 12 months: Yes Approximately how many cigarettes per day: "1 to 2 cigarettetes a week" Do you dip or chew tobacco: No 02/19/20 21:05 Respiratory Therapy Assessment DAILY Comment: Diagnosis: Pneumonia 02/26/20 10:30 Incentive Spirometry UD Comment: Diagnosis: Pneumonia 02/26/20 10:40 RT Miscellaneous Order ROUTINE Comment: Physician Instructions: Reason For Exam: QUALIFY FOR HOME OXYGEN Diagnosis: Pneumonia Discharge Exam General Appearance: no apparent distress, alert Neurologic Exam: alert, oriented x 3, cooperative, normal mood/affect, nml cerebellar function, sensation nml, No motor deficits Eye Exam: PERRL, EOMI, eyes nml inspection Ears, Nose, Throat Exam: normal ENT inspection, pharynx normal, moist mucous membranes Neck Exam: normal inspection, non-tender, supple, full range of motion Respiratory Exam: normal breath sounds, lungs clear, No respiratory distress Cardiovascular Exam: regular rate/rhythm, normal heart sounds Gastrointestinal/Abdomen Exam: soft, No tenderness, No mass Pelvic Exam: deferred Rectal Exam: deferred Back Exam: normal inspection, normal range of motion, No CVA tenderness, No vertebral tenderness Extremity Exam: normal inspection, normal range of motion Skin Exam: normal color, warm, dry Final Diagnosis/Problem List - Final Discharge Diagnosis/Problem (1) Pneumonia Status: Resolved Priority: High Code(s): J18.9 - PNEUMONIA, UNSPECIFIED ORGANISM (2) Suspected COVID-19 virus infection Status: Resolved Assessment & Plan: test is negative Code(s): R68.89 - OTHER GENERAL SYMPTOMS AND SIGNS - Discharge Discharge Date: 02/26/20 Disposition: Home, Self-Care Condition: Stable Prescriptions: Continue buPROPion HCl [Bupropion HCl Sr] 150 mg PO BID Sertraline HCl 100 mg PO BID Potassium Chloride 8 meq PO BID Omeprazole 20 mg PO DAILY Levothyroxine Sodium 100 mcg PO DAILY Atorvastatin Calcium [Lipitor] 10 mg PO DAILY Albuterol Sulfate [Albuterol Sulfate Hfa] 2 puff IH Q6HPRN PRN PRN Reason: Shortness Of Breath Multivitamin [Multivitamins] 1 each PO DAILY Meclizine HCl 12.5 mg PO TIDPRN Cyanocobalamin (Vitamin B-12) [Vitamin B-12] 1,000 mcg SL DAILY Aspirin EC 81 mg [Ecotrin 81 mg] 81 mg PO QHS Fluticasone Propionate [Flonase Allergy Relief] 1 spray NS DAILY Instructions: Oxygen Therapy, Adult (DC), Coronavirus Disease 2019 (COVID-19) ( DC) Additional Instructions: Incentive Spirometry every 2 hours while awake. C-pap at night. Follow up with: KECIA KINGSTON DO [Primary Care Provider] - 03/04/20 10:20 am ()
== END 2020-02-26 15:44 | disposition home or self-care (01) | DRG 177 ==
LOC: ED 11:24 → MED SURG 15:10
PROVIDERS: ADMIT Family Medicine; ATTEND General Practice
DX: U07.1 COVID-19 (principal); J12.89 Other viral pneumonia; R68.89 Other general symptoms and signs; J06.9 Acute upper respiratory infection, unspecified; R11.2 Nausea with vomiting, unspecified; R19.7 Diarrhea, unspecified; M79.10 Myalgia, unspecified site; R06.02 Shortness of breath; R53.1 Weakness; I10 Essential (primary) hypertension; E03.9 Hypothyroidism, unspecified; R00.1 Bradycardia, unspecified; E87.6 Hypokalemia; R50.9 Fever, unspecified; Z79.899 Other long term (current) drug therapy; R05 Cough; R53.83 Other fatigue; E83.51 Hypocalcemia; E77.8 Other disorders of glycoprotein metabolism; T44.7X5A Adverse effect of beta-adrenoreceptor antagonists, initial encounter
CPT/HCPCS: 36415; 80053; 81001; 82150; 82728; 83605; 83615; 83690; 83735; 84132; 85025; 85027; 85379; 86308; 87507; 87631; 87651; 94762; 96360; 96365; 96374; 99291; U0003; 71045; 99285; J0456; J0696; J1650; J2405; J3480; A9270-GY

== ENCOUNTER 2021-10-09 09:22 | Emergency (ER) | payer MEDICARE, OTHER ==
--- NOTE | 2021-10-09 10:32 | XRAY ---
Indication: Left groin pain following fall one week ago. Multiple contiguous images obtained through the pelvis with special attention to the osseous structures. Sagittal and coronal reformatted images obtained. Comparison: December 19, 2020. Osseous structures remain demineralized again with moderate degenerative spondylosis of the visualized lower lumbar spine including stable minimal grade 1 L5 spondylolisthesis. No acute fracture, suspicious bony lesions, or osseous destructive process. Visualized noncontrasted soft tissues again demonstrates moderate scattered aortoiliac calcifications. Uterus again surgically absent. No pathologic pelvic or inguinal lymphadenopathy. Remaining visualized noncontrasted soft tissues unremarkable. No ventral/inguinal hernias. Impression: Stable osteopenia, lower lumbar degenerative spondylosis, minimal grade 1 L5 spondylolisthesis, and scattered vascular calcifications. No new/acute abnormalities.
[2021-10-09 11:15] VITALS: BP 137/63; PULSE 59; O2SAT 98
--- NOTE | 2021-10-09 11:19 | ERPHSYRPT ---
- History of Present Illness Time Seen by Provider: 10/09/21 09:45 Source: patient Exam Limitations: no limitations Patient Subjective Stated Complaint: Pt states that she has been having pain in her upper left leg at the crease where it meets the groin and wraps around to the lateral side, she relates the pain to child pain Triage Nursing Assessment: Pt brought self to the ER, hypertensive, rates pain as 5/10, bruising to the upper left leg/groin area, pt unaware as to how it got there and denies any injuries, pain radiates around to the left lateral hip, pulses normal, skin n/w/d, no difficulties with breathing, doesn't appear to be in any distress Physician History: Left groin/hip pain. No direct trauma recalled. Worse with weight bearing. She has pain pills that help. Method of Injury: unknown Occurred: yesterday Quality: constant Severity of Pain-Max: moderate Severity of Pain-Current: moderate Lower Extremities Pain: hip: left, leg: left, knee: left, thigh: left, foot: left, ankle: left, heel: left, 1st toe: left, 2nd toe: left, 3rd toe: left, 4th toe: left, 5th toe: left, other: left Modifying Factors: Improves With: movement (worse with weight bearing) Associated Symptoms: none Allergies/Adverse Reactions: meperidine [From Demerol] Adverse Reaction (Intermediate, Verified 10/09/21 09:52) nausea/vomiting; "feeling like I'm drunk" Home Medications: Albuterol Sulfate [Albuterol Sulfate Hfa] 2 puff IH Q6HPRN PRN 02/19/20 [History] Aspirin EC 81 mg [Ecotrin 81 mg] 81 mg PO QHS 02/19/20 [History] Cyanocobalamin (Vitamin B-12) [Vitamin B-12] 1,000 mcg SL DAILY 02/19/20 [History] Fluticasone Propionate [Flonase Allergy Relief] 1 spray NS DAILY 02/19/20 [History] Levothyroxine Sodium 100 mcg PO DAILY 02/19/20 [History] Meclizine HCl 12.5 mg PO TIDPRN 02/19/20 [History] Multivitamin [Multivitamins] 1 each PO DAILY 02/19/20 [History] Omeprazole 20 mg PO DAILY 02/19/20 [History] Potassium Chloride 10 meq PO BID 02/19/20 [History] Sertraline HCl 100 mg PO BID 02/19/20 [History] buPROPion HCl [Bupropion HCl Sr] 150 mg PO BID 02/19/20 [History] Lipase/Protease/Amylase [Coby Richards 36,000 Unit Capsule] 1 cap PO TID 10/09/21 [History] Triamterene/Hydrochlorothiazid [Triamterene-Hctz 37.5-25 mg Tb] 1 each PO DAILY 10/09/21 [History] Travel Risk - International Travel Have you traveled outside of the country in past 3 weeks: No - Coronavirus Screening Are you exhibiting any of the following symptoms?: No - Vaccine Status Have you recieved a Covid-19 vaccination: Yes 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 - Vaccination Dates Date of 2cond Vaccination (if applicable): [id number] - Review of Systems Constitutional: No Symptoms Eyes: No Symptoms Ears, Nose, & Throat: No Symptoms Respiratory: No Symptoms Cardiac: No Symptoms Abdominal/Gastrointestinal: No Symptoms Genitourinary Symptoms: No Symptoms Musculoskeletal: No Symptoms Skin: No Symptoms Neurological: No Symptoms Psychological: No Symptoms Endocrine: No Symptoms Hematologic/Lymphatic: No Symptoms Immunological/Allergic: No Symptoms All Other Systems: Reviewed and Negative - Past Medical History Pertinent Past Medical History: Yes Neurological History: No Pertinent History ENT History: No Pertinent History Cardiac History: Hypertension Respiratory History: No Pertinent History Endocrine Medical History: No Pertinent History Musculoskeletal History: No Pertinent History GI Medical History: No Pertinent History History: No Pertinent History Psycho-Social History: No Pertinent History Female Reproductive Disorders: No Pertinent History - Past Surgical History Past Surgical History: Yes Neuro Surgical History: No Pertinent History Cardiac: No Pertinent History Respiratory: No Pertinent History Gastrointestinal: No Pertinent History Genitourinary: No Pertinent History Musculoskeletal: No Pertinent History Female Surgical History: No Pertinent History - Social History Smoking Status: Current some day smoker Exposure to second hand smoke: No Drug Use: none Patient Lives Alone: Yes - Female History Hx Now: No - Nursing Vital Signs Nursing Vital Signs: Initial Vital Signs Temperature 97.0 F 10/09/21 09:37 Pulse Rate 61 10/09/21 09:37 Blood Pressure 171/75 10/09/21 09:37 O2 Sat by Pulse Oximetry 97 10/09/21 09:37 Pain Scale Pain Intensity 5 - Physical Exam General Appearance: no apparent distress Eyes, Ears, Nose, Throat Exam: normal ENT inspection Neck Exam: normal inspection Cardiovascular/Respiratory Exam: chest non-tender, normal breath sounds Gastrointestinal/Abdominal Exam: non-tender, soft Back Exam: normal inspection, normal range of motion (for age, limited overall) Hips Exam: right: non-tender, normal range of motion, no evidence of injury, left: bone tenderness, limited range of motion, pain, soft tissue tenderness, bilateral: normal inspection Neuro/Tendon Exam: normal sensation, normal motor functions Mental Status Exam: alert, oriented x 3, cooperative Skin Exam: normal color SpO2 Interpretation: normal SpO2: 98 O2 Delivery: Room Air - Course Nursing assessment & vital signs reviewed: Yes - Radiology Exams Pelvis X-ray Interpretation: Reviewed by me, No Fracture, Other (DJD) - Radiology Ultrasound Exam Venous Lower Extremity Ultrasound: tele radiology report, Other (No DVT) Ordered Tests: Active Orders 24 hr Category Date Time Status PELVIS WITHOUT CONTRAST [CT] Stat Exams 10/09/21 10:03 Completed Ultrasound Unilateral Extremities [VENOUS UNILAT/ Exams 10/09/21 10:50 Taken LIMITED EXTREMIT] [US] Stat - Progress Progress: unchanged Progress Note: No fx and no DVT. Discussed with Dr. Leigh, OK to Rx a few percocet and recheck in a few days. 10/09/21 11:29 Discussed with : Luis Fernando Will see patient in: office (Rx few percocet and recheck.) Counseled pt/family regarding: diagnosis, need for follow-up, rad results - Departure Departure Disposition: Home Clinical Impression: Strain of left groin Condition: Stable Critical Care Time: No Referrals: KECIA LEIGH DO [Primary Care Provider] - Follow up/PCP as directed Instructions: Groin Strain (DC) Additional Instructions: Activity as tolerated. Medicine as helpful. Recheck if not better. Prescriptions: Oxycodone HCl/Acetaminophen [Percocet 5-325 mg Tablet] 1 each PO Q6H PRN PRN 3 Days #12 tablet MDD 4 PRN Reason: Pain
--- NOTE | 2021-10-09 11:27 | XRAY ---
Indication: Thigh pain. Two-dimensional sonogram and color Doppler imaging of the major venous vessels of the left leg performed. Comparison: None No thrombus seen in the examined deep venous vessels of the left leg including greater saphenous vein. Veins demonstrate normal compressibility. Venous waveforms are normal with and without augmentation. Impression: Left leg negative for DVT.
== END 2021-10-09 11:40 | disposition home or self-care (01) ==
LOC: ED 09:22
DX: S39.011A Strain of muscle, fascia and tendon of abdomen, initial encounter (principal); I10 Essential (primary) hypertension; Z72.0 Tobacco use; Z79.899 Other long term (current) drug therapy; Z79.891 Long term (current) use of opiate analgesic
CPT/HCPCS: 72192; 93971; 99284

== ENCOUNTER 2021-11-25 12:46 | Day surgery (SDC) | payer MEDICARE, OTHER ==
[2021-11-25] MEDS ORDERED: LIDOCAINE HCL 2% 100 MG/5 ML IJ ONE (12:47)
[2021-11-25] MEDS ORDERED: Depo-Medrol 40 MG/ML IM ONE (12:47)
[2021-11-25] MEDS ORDERED: BUPIVACAINE 0.5% VIAL IJ ONE (12:47)
[2021-11-25] MEDS ORDERED: DIPRIVAN 200 MG/20 ML IV ONE (15:20)
[2021-11-25] MEDS ORDERED: Lactated Ringers 1,000 ML IV ONE (15:34)
--- NOTE | 2021-11-25 16:53 | XRAY ---
Indication: Bilateral L3-S1 MBB. Intraoperative fluoroscopy provided for 12 seconds. Single digital spot image submitted for interpretation demonstrates posterior needle tips projecting over the expected left and right L3-S1 nerve roots. Correlate with intraoperative findings/report.
--- NOTE | 2021-11-25 17:04 | XRAY ---
12 seconds fluoroscopy time in surgery for bilateral L3-S1 MBB.
== END 2021-11-25 15:50 | disposition home or self-care (01) ==
LOC: SDC-PAIN 12:46
PROVIDERS: ATTEND Psychiatry & Neurology Pain Medicine
DX: M47.816 Spondylosis without myelopathy or radiculopathy, lumbar region (principal); I10 Essential (primary) hypertension; Z79.899 Other long term (current) drug therapy
CPT/HCPCS: 64493; 64494; 64495; 72020; 77002; J1030; J2704

== ENCOUNTER 2022-02-10 13:58 | Day surgery (SDC) | payer MEDICARE, OTHER ==
[2022-02-10] MEDS ORDERED: Marcaine Mpf 0.5% Vial 30 Ml IJ ONE (13:59)
[2022-02-10] MEDS ORDERED: Depo-Medrol 40 MG/ML IM ONE (13:59)
[2022-02-10] MEDS ORDERED: DIPRIVAN 200 MG/20 ML IV ONE (16:25)
[2022-02-10] MEDS ORDERED: Lactated Ringers 1,000 ML IV ONE (17:10)
--- NOTE | 2022-02-10 19:45 | XRAY ---
Indication: Bilateral L3-S1 MBB. Intraoperative fluoroscopy provided for 24 seconds. Single digital spot image submitted for interpretation demonstrates posterior needle tips projecting over the expected left and right L3-S1 nerve roots. Correlate with intraoperative findings/report.
--- NOTE | 2022-02-11 08:45 | XRAY ---
24 seconds fluoroscopy time in surgery for bilateral L3-S1 MBB.
== END 2022-02-10 16:53 | disposition home or self-care (01) ==
LOC: SDC-PAIN 13:58
PROVIDERS: ATTEND Psychiatry & Neurology Pain Medicine
DX: M47.816 Spondylosis without myelopathy or radiculopathy, lumbar region (principal); Z79.899 Other long term (current) drug therapy
CPT/HCPCS: 64493; 64494; 64495; 72020; 77002; J1030; J2704

== ENCOUNTER 2022-03-03 14:14 | Day surgery (SDC) | payer MEDICARE, OTHER ==
[2022-03-03] MEDS ORDERED: Depo-Medrol 40 MG/ML IM ONE (14:15)
[2022-03-03] MEDS ORDERED: XYLOCAINE-MPF 1% 5ML SDV IJ ONE (14:15)
[2022-03-03] MEDS ORDERED: Marcaine Mpf 0.5% Vial 30 Ml IJ ONE (14:15)
[2022-03-03] MEDS ORDERED: DIPRIVAN 200 MG/20 ML IV ONE (15:46)
--- NOTE | 2022-03-03 17:36 | XRAY ---
35 seconds of fluoroscopy was used in surgery for a right L3-S1 RFA.
[2022-03-03] MEDS ORDERED: Lactated Ringers 1,000 ML IV ONE (17:42)
--- NOTE | 2022-03-03 18:02 | XRAY ---
Indication: Right L3-S1 RFA. Intraoperative fluoroscopy provided for 35 seconds. 4 digital spot image submitted for interpretation demonstrates posterior needle tips projecting over the expected right L3-S1 nerve roots. Correlate with intraoperative findings/report.
== END 2022-03-03 16:17 | disposition home or self-care (01) ==
LOC: SDC-PAIN 14:14
PROVIDERS: ATTEND Psychiatry & Neurology Pain Medicine
DX: M47.816 Spondylosis without myelopathy or radiculopathy, lumbar region (principal); Z79.899 Other long term (current) drug therapy
CPT/HCPCS: 01939; 64635; 64636; 72100; 77002; 99100; J1030; J2704

== ENCOUNTER 2022-03-17 13:56 | Day surgery (SDC) | payer MEDICARE, OTHER ==
[2022-03-17] MEDS ORDERED: Depo-Medrol 40 MG/ML IM ONE (13:57)
[2022-03-17] MEDS ORDERED: Xylocaine 1% Vial 30 ML PF IJ ONE (13:57)
[2022-03-17] MEDS ORDERED: Marcaine Mpf 0.5% Vial 30 Ml IJ ONE (13:57)
[2022-03-17] MEDS ORDERED: DIPRIVAN 200 MG/20 ML IV ONE (15:21)
[2022-03-17] MEDS ORDERED: Lactated Ringers 1,000 ML IV ONE (15:52)
--- NOTE | 2022-03-17 16:14 | XRAY ---
Indication: Left L3-S1 RFA. Intraoperative fluoroscopy provided for 43 seconds. 3 digital spot image submitted for interpretation demonstrates posterior needle tips projecting over the expected left L3-S1 nerve roots. Correlate with intraoperative findings/report.
--- NOTE | 2022-03-17 17:13 | XRAY ---
43 seconds of fluoroscopy was used in surgery for a left L3-S1 RFA.
== END 2022-03-17 15:56 | disposition home or self-care (01) ==
LOC: SDC-PAIN 13:56
PROVIDERS: ATTEND Psychiatry & Neurology Pain Medicine
DX: M47.816 Spondylosis without myelopathy or radiculopathy, lumbar region (principal); I10 Essential (primary) hypertension; Z79.899 Other long term (current) drug therapy
CPT/HCPCS: 64635; 64636; 72100; 77002; 99100; J1030; J2001; J2704